=== PATIENT | female | born 1955 | race Caucasian/White ===

== ENCOUNTER 2022-10-20 14:07 | Outpatient (RCR) | payer OTHER, SELFPAY ==
[2022-10-20 15:44] LABS: Anion Gap 8 (5-15); BUN 32 mg/dL (7-18); BUN/Creat Ratio 15.2 RATIO (10-20); Chloride 110 mmol/L (98-107); Creatinine, Serum 2.11 mg/dL (0.55-1.02); EST Glomerular Filtration Rate 25 mL/min (>60); Est Glom Filt Rate - Afr Amer 30 mL/min (>60); Glucose 196 mg/dL (74-106); Potassium 3.7 mmol/L (3.5-5.1); Sodium Level 140 mmol/L (136-145)
== END 2022-10-20 18:00 | disposition home or self-care (01) ==
LOC: HHLAB 14:07
PROVIDERS: PCP Internal Medicine; Referring Provider Internal Medicine; Visit Provider Internal Medicine
DX: D64.9 Anemia, unspecified (principal)
CPT/HCPCS: 80048

== ENCOUNTER 2022-10-25 10:48 | Outpatient (RCR) | payer OTHER, SELFPAY ==
[2022-10-25 14:00] LABS: Anion Gap 8 (5-15); BUN 38 mg/dL (7-18); BUN/Creat Ratio 18.6 RATIO (10-20); Calcium,Total 9.7 mg/dL (8.5-10.1); Chloride 110 mmol/L (98-107); Creatinine, Serum 2.04 mg/dL (0.55-1.02); EST Glomerular Filtration Rate 26 mL/min (>60); Est Glom Filt Rate - Afr Amer 31 mL/min (>60); Glucose 207 mg/dL (74-106); Potassium 4.1 mmol/L (3.5-5.1); Sodium Level 138 mmol/L (136-145)
== END 2022-10-25 18:00 | disposition home or self-care (01) ==
LOC: HHLAB 10:48
PROVIDERS: PCP Internal Medicine; Visit Provider Internal Medicine
DX: N17.9 Acute kidney failure, unspecified (principal); N18.4 Chronic kidney disease, stage 4 (severe)
CPT/HCPCS: 80048

== ENCOUNTER 2024-01-17 11:00 | Outpatient (RCR) | payer OTHER, SELFPAY ==
--- NOTE | 2023-10-26 14:22 | HP.PTEVAL_ITS ---
Patient's Visit Information Visit Information Visit Information: IVIS MURRELL is a 67 year old F referred to Physical Therapy by Dr. Max Alvarenga MD with a diagnosis of LBP. Date of Evaluation: 10/26/23 Physical Therapist: Diony Landry, PT, ATC Visit Plan Frequency: 2x /Week Duration: 4-6 Weeks Plan: B LE strengthening, core stab ex's, gait training, balance and proprio, stair negotiation, nustep, and HEP Subjective Subjective: Pt reports she has had a chronic Hx of LBP. Pt reports she had surgery in March of this year to cement L2 and L5 which helped to keep the damage in her spine from worsening, but never helped with her LBP and Leg pain. Pt notes she had another surgery performed this past August to put in a LB stimulator which has actually helped to decrease her her LBP and LE pain. Pt reports she feels very fatigued and weak at this time. Pt also notes she had a lot of health issues over a year ago which resulted in a lot of falls and generalized weakness. Pt reports she has had some home health therapy over this time span, but is still very weak. Pt notes she lives with her special needs son and her . Pt reports her bedrrom is upstairs, but she sleeps down stairs secondary to the only bathroom in the house being on the main floor. Pt has 2 steps to enter her house, which she has to use 2 handrails and negotiate one step at a time. Pt reports she needs help with showering and with getting dressed at times. R LE is the weakest of her LE's secondary to having vascular surgery performed many years ago. Pt reports she is very limited with prolonged standing and walking at this time. Pt reports she has good sensation in her feet. Pt reports she is I with transfers. Pt's last fall has been several months ago in July. 5/10 at rest in B knees. Pain Legs: Pain Intensity (Out of 10): 5 Pain Intensity Range: 5 Objective Objective: TU seconds Sit to stands: Pt is able to get 3 sit to stands in a 30 second time span. Gait: Pt is able to ambulate approximately 120 feet with use of WW until needing to sit secondary to fatigue. MMT: B LE's are grossly 4-/5 throughout Balance/Special Test Scores Lower Extremity Functional Score: 16 Goals Goal 1:: Pt will be able to perform 8 sit to stand transfers in 30 seconds to aid with car transfers Goal Time Frame: 4-6 Weeks Goal 2:: Pt will perform the TUG test in under 15 seconds to aid with community mobility Goal Time Frame: 4-6 Weeks Goal 3:: Pt will be able to ambulate greater than 300 feet to aid with community mobility Goal Time Frame: 4-6 Weeks Goal 4:: I with HEP Goal Time Frame: 4-6 Weeks Rehabilitation Potential Physical Therapy Diagnosis: Pt reports LBP, LE weakness, and limitations with gait secondary to debilitation Rehabilitation Potential: Good Anticipated Interventions Patient/Client Instruction: Educate patient on: Condition and Plan of Care For the Purpose of:: To improve self management Therapeutic Exercise to Include: Strength training, Endurance training, Balance training, Gait and locomotor training and Dynamic Lumbar Stabilization For the Purpose of:: To improve muscle performance and motor function, To increase tolerance to activity/condition/position and To improve ability of physical actions for home/community/work/leisure Text: Thank you for the opportunity to evaluate your patient. For Medicare and Medicare HMO plans, please review the plan of care and approve it. It will need to be FAXED BACK to us at [phone] for Medicare purposes. For Medicare only, by signing this I certify the plan of care. Please let me know if there are questions or concerns regarding this plan of care. Physician Signature: Date:
--- NOTE | 2023-11-23 10:57 | HP.PTREVAL ---
Re-Evaluation Intro: Dr. Max Alvarenga MD, It has been my pleasure to treat IVIS MURRELL over the last 9 visits for LBP. Please see the progress note below for an update on the physical therapy plan of care! Subjective Subjective: Pt reports she has really improved a lot at this time. Objective Objective/Function: Pt is able to ambulate 170 feet with ww until needing a rest secondary to fatigue TU sec Sit to stands: 0 in 30 sec without UE. 5 reps in 30 sec with the use of UE's Pt is progressing well in all aspects at this time Plan Plan Plan: B LE strengthening, core stab ex's, gait training, balance and proprio, stair negotiation, nustep, and HEP Balance/Gait/Functional tests Balance/Special Test Scores Lower Extremity Functional Score: 15 Goals Goals Goal 1:: Pt will be able to perform 8 sit to stand transfers in 30 seconds to aid with car transfers Goal Time Frame: 4-6 Weeks Goal Progress: Progressing Goal 2:: Pt will perform the TUG test in under 15 seconds to aid with community mobility Goal Time Frame: 4-6 Weeks Goal Progress: Progressing Goal 3:: Pt will be able to ambulate greater than 300 feet to aid with community mobility Goal Time Frame: 4-6 Weeks Goal Progress: Progressing Goal 4:: I with HEP Goal Time Frame: 4-6 Weeks Goal Progress: Progressing Anticipated Interventions Anticipated Interventions Patient/Client Instruction: Educate patient on: Condition and Plan of Care For the Purpose of:: To improve self management Therapeutic Exercise to Include: Strength training, Endurance training, Balance training, Gait and locomotor training and Dynamic Lumbar Stabilization For the Purpose of:: To improve muscle performance and motor function, To increase tolerance to activity/condition/position and To improve ability of physical actions for home/community/work/leisure Re-Evaluation Ending Re-evaluation ending: Please do not hesitate to contact me at [phone] by phone or if you have questions or concerns regarding this new plan of care! Sincerely, Diony Landry, PT, ATC
--- NOTE | 2024-01-17 13:02 | HP.PTDCSUM ---
Discharge Summary D/C summary: It has been my pleasure to treat IVIS MURRELL referred by Dr. Max Alvarenga MD, with the diagnosis of LBP for a total of 18 visit(s). Discharge Date: Please see the following information for a summary of their discharge status. Subjective Subjective: I am ready for my gym routine Pain Legs: Pain Intensity (Out of 10): 7 LB: Pain Intensity (Out of 10): 5 Overall Improvement % Improvement: 60 Objective Objective/Function: Pt is now I with HEP Goals Goal 1:: Pt will be able to perform 8 sit to stand transfers in 30 seconds to aid with car transfers Goal Progress: Progressing Goal 2:: Pt will perform the TUG test in under 15 seconds to aid with community mobility Goal Progress: Progressing Goal 3:: Pt will be able to ambulate greater than 300 feet to aid with community mobility Goal Progress: Progressing Goal 4:: I with HEP Goal Progress: Goal Met Plan Plan: Educate pt on gym routine over 1-2 visits D/C Information d/c sentence: If there are questions or concerns regarding this patient's physical therapy, please feel free to call me at [phone]. Thank you for the referral of this patient. Sincerely, Diony Landry, PT, ATC Balance/Gait/Functional tests Balance/Special Test Scores Lower Extremity Functional Score: 15 Improvement % Improvement: 60
== END 2024-01-17 19:00 | disposition home or self-care (01) ==
LOC: PT 11:00
PROVIDERS: PCP Internal Medicine; Referring Provider Internal Medicine; Visit Provider Internal Medicine
DX: M54.50 Low back pain, unspecified (principal); R29.898 Other symptoms and signs involving the musculoskeletal system; G89.29 Other chronic pain
CPT/HCPCS: 97110; 97116; 97161; 97530

== ENCOUNTER 2024-05-14 11:48 | Inpatient (IN) | payer MEDICARE, SELFPAY ==
[2024-05-14] VITALS (7 sets, daily range): BP systolic 136–177; BP diastolic 57–78; PULSE 71–90; RESP 16–19; TEMP 36.3–36.8; O2SAT 93–98; BMI 27.4
--- NOTE | 2024-05-14 12:13 | ED.VIS.FALL ---
HPI <ERIC Quinn - Last Filed: 05/14/24 20:57> HPI - Fall History of Present Illness Chief Complaint: Fall Narrative Narrative: 68-year-old female had a mechanical fall in her kitchen landing on her right hip. She has poor balance at baseline and recently started physical therapy for general strengthening. She uses a walker. She was washing up at the kitchen sink so her walker was next to her and she thought she was holding onto the counter but was not and slipped backwards and fell onto her right side. She states she hit her head on the ground but not hard. No LOC. No blood thinners. She has significant right hip pain and her and a friend were able to help her up and sit her in a chair but she could not walk so was brought in by EMS. She has chronic back pain but denies increase in pain. [facility] <ERIC Quinn - Last Filed: 05/14/24 20:57> [facility] Medical History (Updated 05/14/24 @ 16:[address] Kavita Johnson, DO) Chronic back pain LOPEZ (nonalcoholic steatohepatitis) Tobacco abuse Urinary bladder incontinence Depression GERD (gastroesophageal reflux disease) Hyperlipidemia COPD (chronic obstructive pulmonary disease) Diabetes Coronary artery disease Hypertension Home Medications ?Medication ?Instructions ?Recorded ?Last Taken ?Type albuterol sulfate 90 mcg/actuation 2 inh inhalation Q4H PRN shortness 05/14/24 Unknown History breath activated powder of breath inhaler,sensor (Proair Digihaler) amlodipine 5 mg tablet 5 mg PO DAILY BLOOD PRESSURE 05/14/24 05/14/24 History ammonium lactate 12 % lotion 1 applic topical DAILY PRN dry skin 05/14/24 Unknown History aspirin 81 mg tablet,delayed 81 mg PO DAILY PAIN 05/14/24 05/14/24 History release (Adult Aspirin Regimen) coenzyme Q10 100 mg capsule (Co 100 mg PO BID SUPPLEMENT 05/14/24 05/14/24 History Q-10) colesevelam 625 mg tablet 1,875 mg PO QHS CHOLESTROL 05/14/24 05/12/24 History cyanocobalamin (vitamin B-12) 500 500 mcg PO DAILY SUPPLEMENT 05/14/24 05/14/24 History mcg tablet doxazosin 2 mg tablet 2 mg PO BID BLOOD PRESSURE 05/14/24 05/14/24 History ergocalciferol (vitamin D2) 1,250 1,250 mcg PO CURRAN SUPPLEMENT 05/14/24 Unknown History mcg (50,000 unit) capsule ferrous sulfate 325 mg (65 mg 325 mg PO DAILY SUPPLEMENT 05/14/24 05/14/24 History iron) tablet (Neetu-Time) fluticasone fur. 100 mcg-umeclid 1 ea inhalation DAILY ASTHMA 05/14/24 05/14/24 History 62.5 mcg-vilant 25 mcg inhalat.powder (Trelegy Ellipta) fluticasone propionate 50 1 spray intranasal QHS ALLERGIES 05/14/24 05/12/24 History mcg/actuation nasal spray,suspension gemfibrozil 600 mg tablet 600 mg PO BID CHOLESTROL 05/14/24 05/14/24 History isosorbide mononitrate 60 mg 60 mg PO DAILY ANGINA 05/14/24 05/14/24 History tablet,extended release 24 hr lactulose 10 gram/15 mL oral 30 ml PO TID PRN constipation 05/14/24 Unknown History solution losartan 25 mg tablet 25 mg PO DAILY BLOOD PRESSURE 05/14/24 05/14/24 History magnesium glycinate 100 mg (as 200 mg PO DAILY SUPPLEMENT 05/14/24 05/14/24 History glycinate) tablet (Mag Glycinate) multivitamin (Daily Multi-Vitamin 1 tab PO DAILY SUPPLEMENT 05/14/24 05/14/24 History tablet) pantoprazole 40 mg tablet,delayed 40 mg PO BID STOMACH ACID 05/14/24 05/14/24 History release polysaccharide iron complex 150 mg 150 mg PO BID SUPPLEMENT 05/14/24 05/14/24 History iron capsule sitagliptin phosphate 50 mg tablet 50 mg PO DAILY DIABETES 05/14/24 05/14/24 History (Januvia) spironolactone 25 mg tablet 25 mg PO DAILY WATER PILL 05/14/24 05/14/24 History torsemide 20 mg tablet 20 mg PO DAILY BLOOD PRESSURE 05/14/24 05/14/24 History triamcinolone acetonide 55 mcg 2 spray intranasal DAILY ALLERGIES 05/14/24 05/14/24 History nasal spray aerosol trospium 20 mg tablet 20 mg PO BID OVERRACTIVE BLADDER 05/14/24 05/14/24 History venlafaxine 37.5 mg tablet 37.5 mg PO BID DEPRESSION 05/14/24 05/14/24 History Allergy/AdvReac Type Severity Reaction Status Date / Time diltiazem Allergy Intermediate RASH Verified 05/14/24 12:04 grass pollen Allergy Intermediate Itching Verified 05/14/24 12:04 hydralazine Allergy Intermediate Other Verified 05/14/24 12:04 metoprolol (From Toprol XL) Allergy Intermediate Itching Verified 05/14/24 12:04 mold Allergy Intermediate Hives Verified 05/14/24 12:04 tomato Allergy Intermediate Itching Verified 05/14/24 12:04 vancomycin Allergy Intermediate Hives Verified 05/14/24 12:04 strawberry (strawberries) Allergy Itching Verified 05/14/24 12:04 NSAIDS (Non-Steroidal AdvReac Mild Other Verified 05/14/24 12:04 Anti-Inflamma pravastatin (From Pravachol) AdvReac Mild Hives Verified 05/14/24 12:04 bupropion (From Wellbutrin) AdvReac PASSES OUT Verified 05/14/24 12:04 Family History (Updated 05/14/24 @ 16:[address] Kavita Johnson DO) Other Diabetes Hypertension Surgical History S/P placement of nerve stimulator Social History (Updated 05/14/24 @ 16:[address] Kavita Johnson DO) household members: spouse housing: house Smoking Status: Former smoker alcohol intake: never substance use type: does not use ROS <ERIC Quinn - Last Filed: 05/14/24 20:57> ROS ED ROS Narrative Constitutional: Negative for fever, chills, malaise. CVS: Negative for chest pain. Respiratory: Negative for shortness of breath. GI: Negative for nausea, vomiting. Neuro: Negative for headache. Musc: Positive for right hip pain, trauma. EXAM <ERIC Quinn - Last Filed: 05/14/24 20:57> Physical Exam Narrative Exam Narrative: CONST: Patient sitting in no acute distress. EYES: Normal inspection. HEAD: Normocephalic atraumatic. NECK: Normal inspection. No midline tenderness or step-offs. RESP: No respiratory distress, CTAB. Chest wall nontender CVS: Regular rate and rhythm, no murmur, no gallop. ABD: Soft moderately distended abdomen which is chronic, no guarding or rebound. Back: Normal inspection, no midline tenderness. Palpable spinal stimulator under the skin. SKIN: Color normal, no rash, warm, dry, intact. EXTREMITIES: Full range of motion of upper extremities, no bony tenderness, 2+ radial pulses. Patient holding both legs flexed at the hips. Tender over right greater trochanter and proximal femur. No deformity or crepitus. No tenderness of the right knee lower leg or foot. Left leg nontender. 2+ DP pulses. NEURO: Alert and answering questions appropriately. PSYCH: Normal affect. Const Vital Signs: 05/14/24 11:50 05/14/24 11:55 05/14/24 13:48 Temperature 97.9 F Temperature Source Oral Pulse Rate 78 71 Respiratory Rate 18 16 Respiratory Effort Normal Blood Pressure 151/67 H 136/63 H Blood Pressure Mean 95 87 Pulse Ox 93 95 Oxygen Delivery Method Room Air Oxygen Flow Rate (L/min) 05/14/24 14:28 05/14/24 14:56 Temperature 98.2 F Temperature Source Pulse Rate 82 82 Respiratory Rate 19 H 18 Respiratory Effort Blood Pressure 152/78 H 154/72 H Blood Pressure Mean 102 99 Pulse Ox 97 95 Oxygen Delivery Method Nasal Cannula Oxygen Flow Rate (L/min) 2 <Dr. Analy Tsang DO - Last Filed: 05/14/24 14:41> Physical Exam Const Vital Signs: 05/14/24 11:50 05/14/24 11:55 05/14/24 13:48 Temperature 97.9 F Temperature Source Oral Pulse Rate 78 71 Respiratory Rate 18 16 Respiratory Effort Normal Blood Pressure 151/67 H 136/63 H Blood Pressure Mean 95 87 Pulse Ox 93 95 Oxygen Delivery Method Room Air Oxygen Flow Rate (L/min) 05/14/24 14:28 05/14/24 14:56 Temperature 98.2 F Temperature Source Pulse Rate 82 82 Respiratory Rate 19 H 18 Respiratory Effort Blood Pressure 152/78 H 154/72 H Blood Pressure Mean 102 99 Pulse Ox 97 95 Oxygen Delivery Method Nasal Cannula Oxygen Flow Rate (L/min) 2 MDM <ERIC Quinn - Last Filed: 05/14/24 20:57> MDM MDM Narrative Medical decision making narrative: History gathered from: Patient and Consults: Orthopedics, hospitalist 68-year-old female had a mechanical fall hitting her head and right hip. She is unable to ambulate secondary to pain was brought in by EMS. She is awake and alert. GCS 15. Stable vital signs. She has no external signs of injury to her head. She is holding both legs flexed and they appear symmetric but she is tender over the right greater trochanter and proximal femur. Neurovascularly intact. CT brain is negative. Right hip x-ray shows a patient transcervical fracture of the proximal femur. Patient was given IV morphine and Zofran. Labs and preop imaging obtained. I will discuss the case with orthopedics and hospitalist. I have personally performed a face to face assessment of the patient and have reviewed the ESSIE Note. I performed a substantive portion of the visit including all aspects of the following. My dobbs findings include: History is [patient presents to the emergency department after sustaining a fall today. She states that she was standing in the kitchen trying to wash her face when she lost her balance and fell injuring her right hip. She did hit her head but no loss of consciousness. She denies significant neck pain. Presents via EMS from home. She takes a baby aspirin daily. No other anticoagulation. Denies recent illness. She also has history of peripheral artery disease] Exam is [HEENT-PERRLA, EOMI. Cranial nerves II through XII grossly intact. TMs clear. Mucous membranes moist. No adenopathy. Cardiovascular-regular rate and rhythm without murmur or ectopy Lungs-clear to auscultation, chest wall stable without crepitus or subcu emphysema Abdomen-normoactive bowel sounds, soft, nontender, no rebound or rigidity, no peritoneal signs. Extremities-intact ?4, normal range of motion, normal pulses, atraumatic] Medical Decison Making [patient had x-rays of the right hip and pelvis that showed a right femoral neck fracture.] CT scan of the brain without contrast on my interpretation shows no bleeding or hemorrhage or skull fracture. Patient will report from radiology pending. CBC with differential showed a white count 5.8 with hemoglobin 12.7 and platelet count of 137. Will obtain chest x-ray as well as an EKG. Case will be discussed with hospitalist as well as with orthopedics and patient will be admitted to the hospital Other additions or changes: [None] Lab Data Labs: Laboratory Results - last 24 hr 05/14/24 05/14/24 12:02 13:10 WBC 5.8 RBC 4.17 L Hgb 12.7 Hct 38.0 MCV 91.1 MCH 30.5 MCHC 33.4 RDW Std Deviation 44.7 H RDW Coeff of Juanito 13.5 Plt Count 137 L MPV 12.7 H Immature Gran % (Auto) 0.700 Neut % (Auto) 82.3 H Lymph % (Auto) 7.7 L Mccormick % (Auto) 6.4 Eos % (Auto) 2.4 Baso % (Auto) 0.5 Absolute Neuts (auto) 4.8 Absolute Lymphs (auto) 0.45 L Nucleated RBC % 0 PT 13.5 INR 1.0 Sodium 140 Potassium 4.3 Chloride 105 Carbon Dioxide 18.3 L Anion Gap 16 H BUN 37 H Creatinine 1.52 H Estim Creat Clear Calc 37.94 L Est GFR (MDRD) Non-Af 37 L BUN/Creatinine Ratio 24.5 H Glucose 206 H Calcium 9.9 Blood Type AB POSITIVE Antibody Screen NEGATIVE Radiography Diagnostic Testing: Clinical Impression(s) from Imaging Studies Femur X-Ray 05/14/24 12:30 IMPRESSION: Nondisplaced impacted subcapital fracture of the proximal right femur. Reading Location: [facility] Pelvis X-Ray 05/14/24 12:30 IMPRESSION: Nondisplaced subcapital fracture proximal right femur. Reading Location: [facility]--[address] 05/14/24 13:00 IMPRESSION: Cerebral atrophy. No acute intracranial abnormality is seen. Reading Location: [facility] Chest X-Ray 05/14/24 13:15 IMPRESSION: Cardiomegaly with mild congestion. Reading Location: [facility] <Dr. Analy Tsang, DO - Last Filed: 05/14/24 14:41> MDM MDM Narrative Medical decision making narrative: History gathered from: Patient and 68-year-old female had a mechanical fall hitting her head and right hip. She is unable to ambulate secondary to pain was brought in by EMS. She is awake and alert. GCS 15. Stable vital signs. She has no external signs of injury to her head. There is no tenderness of the cervical spine or thoracic or lumbar spine. Normal cardiopulmonary exam. Abdomen soft and nontender. There is chronic abdominal distention from Lopez cirrhosis. She is holding both legs flexed and they appear symmetric but she is tender over the right greater trochanter and proximal femur. Neurovascularly intact. I have personally performed a face to face assessment of the patient and have reviewed the ESSIE Note. I performed a substantive portion of the visit including all aspects of the following. My dobbs findings include: History is [patient presents to the emergency department after sustaining a fall today. She states that she was standing in the kitchen trying to wash her face when she lost her balance and fell injuring her right hip. She did hit her head but no loss of consciousness. She denies significant neck pain. Presents via EMS from home. She takes a baby aspirin daily. No other anticoagulation. Denies recent illness. She also has history of peripheral artery disease] Exam is [HEENT-PERRLA, EOMI. Cranial nerves II through XII grossly intact. TMs clear. Mucous membranes moist. No adenopathy. Cardiovascular-regular rate and rhythm without murmur or ectopy Lungs-clear to auscultation, chest wall stable without crepitus or subcu emphysema Abdomen-normoactive bowel sounds, soft, nontender, no rebound or rigidity, no peritoneal signs. Extremities-intact ?4, normal range of motion, normal pulses, atraumatic] Medical Decison Making [patient had x-rays of the right hip and pelvis that showed a right femoral neck fracture.] CT scan of the brain without contrast on my interpretation shows no bleeding or hemorrhage or skull fracture. Patient will report from radiology pending. CBC with differential showed a white count 5.8 with hemoglobin 12.7 and platelet count of 137. Will obtain chest x-ray as well as an EKG. Case will be discussed with hospitalist as well as with orthopedics and patient will be admitted to the hospital Other additions or changes: [None] Lab Data Attestation: I reviewed the patient's lab results. Labs: Laboratory Results - last 24 hr 05/14/24 05/14/24 12:02 13:10 WBC 5.8 RBC 4.17 L Hgb 12.7 Hct 38.0 MCV 91.1 MCH 30.5 MCHC 33.4 RDW Std Deviation 44.7 H RDW Coeff of Juanito 13.5 Plt Count 137 L MPV 12.7 H Immature Gran % (Auto) 0.700 Neut % (Auto) 82.3 H Lymph % (Auto) 7.7 L Mccormick % (Auto) 6.4 Eos % (Auto) 2.4 Baso % (Auto) 0.5 Absolute Neuts (auto) 4.8 Absolute Lymphs (auto) 0.45 L Nucleated RBC % 0 PT 13.5 INR 1.0 Sodium 140 Potassium 4.3 Chloride 105 Carbon Dioxide 18.3 L Anion Gap 16 H BUN 37 H Creatinine 1.52 H Estim Creat Clear Calc 37.94 L Est GFR (MDRD) Non-Af 37 L BUN/Creatinine Ratio 24.5 H Glucose 206 H Calcium 9.9 Blood Type AB POSITIVE Antibody Screen NEGATIVE Radiography Diagnostic Testing: Clinical Impression(s) from Imaging Studies Femur X-Ray 05/14/24 12:30 IMPRESSION: Nondisplaced impacted subcapital fracture of the proximal right femur. Reading Location: [facility]1 Pelvis X-Ray 05/14/24 12:30 IMPRESSION: Nondisplaced subcapital fracture proximal right femur. Reading Location: [facility]-[address] 05/14/24 13:00 IMPRESSION: Cerebral atrophy. No acute intracranial abnormality is seen. Reading Location: [facility] Chest X-Ray 05/14/24 13:15 IMPRESSION: Cardiomegaly with mild congestion. Reading Location: [facility] 1 view chest x-ray obtained interpreted by myself as increased chronic interstitial changes bilaterally. No evidence of infiltrate or pneumothorax. 2 view x-rays of the right femur obtained interpreted by myself as right subcapital hip fracture minimally displaced. Radiology in agreement. 1 view pelvis x-ray obtained interpreted by myself as right subcapital hip fracture. No other fractures noted. EKG Initial EKG: Attestation: I personally reviewed and interpreted this EKG as follows: Comments: Sinus rhythm with ventricular rate of 71 bpm with old septal infarct Discharge Plan Dx/Rx/DC Orders Clinical Impression: Fall, Closed right hip fracture, Hypertension Disposition Disposition: Acute Care Hospital [facility] Discharge Date/Time: 05/14/24 17:37
[2024-05-14] MEDS: Ondansetron 4 MG/2 ML Vial IV ×2 (12:14→13:36)
[2024-05-14] MEDS: Morphine 4 MG/ML Syringe IV ×3 (12:15→17:14)
--- NOTE | 2024-05-14 12:30 | RAD_ITS ---
PROCEDURE: FEMUR MIN 2 VIEWS REASON FOR EXAM: Pain following a fall. TECHNIQUE: Four views of the left femur were obtained. COMPARISON: None. FINDINGS: RIGHT FEMUR: Nondisplaced right subcapital fracture. Vascular stent in the common femoral artery and superficial femoral artery. RAD/Femur Min 2 Views IMPRESSION: Nondisplaced impacted subcapital fracture of the proximal right femur. Reading Location: [facility]--1
--- NOTE | 2024-05-14 12:30 | RAD_ITS ---
PROCEDURE: PELVIS 1 OR 2 VIEWS REASON FOR EXAM: Right hip pain following a fall. TECHNIQUE: Two views were obtained. COMPARISON: None FINDINGS: Nondisplaced right subcapital fracture of the proximal right femur. Degenerative changes of the lower lumbar spine with prior vertebroplasty of the L3 and L5 vertebrae. Stent is seen in the distal portion of the left external iliac and common femoral arteries. RAD/Pelvis 1 or 2 Views IMPRESSION: Nondisplaced subcapital fracture proximal right femur. [facility]
--- NOTE | 2024-05-14 13:00 | CT_ITS ---
EXAM: BRAIN/HEAD WITHOUT CONTRAST CLINICAL HISTORY: Head injury due to a fall. COMPARISON: None TECHNIQUE: Multiple axial tomographic images were obtained without intravenous contrast administration. Coronal and sagittal reconstruction was obtained as well. FINDINGS: Mild degree of cerebral atrophy. Mild degree of decreased attenuation deep in the white matter of both cerebral hemispheres in keeping with chronic small-vessel disease. Old tiny lacune of the posterior right thalamus. CT/Brain/Head without Contrast IMPRESSION: Cerebral atrophy. No acute intracranial abnormality is seen. Reading Location: [facility]
[2024-05-14 13:05] LABS: Absolute Lymphocyte Count 0.45 X10^3/uL (0.83-4.51); Absolute Neutrophil Count 4.8 X10^3/uL (2.0-7.7); Basophil# 0.03 X10^3/uL; Basophil% 0.5 % (0-1); Eosinophil# 0.14 X10^3/uL; Eosinophils% 2.4 % (0-5); Hemoglobin 12.7 g/dL (12.0-15.0); Lymphocyte # 0.45 X10^3/ul (0.83-4.51); Lymphocyte % 7.7 % (19-41); Mean Corp Hgb Conc 33.4 g/dL (32-36); Mean Corpuscular Hgb 30.5 pg (27.0-32.0); Mean Corpuscular Volume 91.1 fL (81-99); Mean Platelet Vol. 12.7 fl (6.2-12.0); Monocyte# 0.37 X10^3/uL; Monocyte% 6.4 % (0-10); NRBC Flagged by Analyzer 0 % (0-5); Neutrophil # 4.79 X10^3/uL (2.7-7.7); Neutrophil % 82.3 % (47-70); POSITIVE DIFFERENTIAL YES; Platelet Count 137 K/mm3 (150-450); RBC Distribution Width CV 13.5 % (11.6-14.6); RBC Distribution Width SD 44.7 fl (35.1-43.9); Red Blood Count 4.17 M/mm3 (4.2-5.4); White Blood Count 5.8 K/mm3 (4.4-11.0)
--- NOTE | 2024-05-14 13:12 | EKG12_ITS ---
Test Reason : PRE-OP Blood Pressure : */* mmHG Vent. Rate : 71 BPM Atrial Rate : 71 BPM P-R Int : 308 ms QRS Dur : 84 ms QT Int : 226 ms P-R-T Axes : 93 39 44 degrees QTcB Int : 245 ms Sinus rhythm with 1st degree A-V block Possible Left atrial enlargement Septal infarct , age undetermined Abnormal ECG Confirmed by Miky Rainey ([id number]), web content editor VICTOR M CARRILLO ([id number]) on 05/15/2024 10:56:54 AM Referred By: Confirmed By: Miky Rainey
--- NOTE | 2024-05-14 13:15 | RAD_ITS ---
EXAM: XR Chest, 1 View CLINICAL INDICATION: TECHNIQUE: Frontal view of the chest. COMPARISON: No relevant prior studies available. FINDINGS: LUNGS AND PLEURAL SPACES: See below. HEART: Cardiomegaly with mild congestion. MEDIASTINUM: Unremarkable. Normal mediastinal contour. BONES/JOINTS: Unremarkable. No acute fracture. RAD/Chest 1 View (Portable) IMPRESSION: Cardiomegaly with mild congestion. Reading Location[facility]
[2024-05-14 13:21] LABS: Prothrombin Time (Protime)PT. 13.5 SECONDS (11.7-14.9)
[2024-05-14 13:31] LABS: Anion Gap 16 (5-15); BUN 37 mg/dL (4-19); BUN/Creat Ratio 24.5 RATIO (10-20); Calcium,Total 9.9 mg/dL (7.6-11.0); Carbon Dioxide 18.3 mmol/L (21.0-32.0); Chloride 105 mmol/L (98-108); Creatinine, Serum 1.52 mg/dL (0.70-1.20); EST Glomerular Filtration Rate 37 (>60); Estimated Creatinine Clearance 37.94 ml/min (50-250); Glucose 206 mg/dL (70-99); Potassium 4.3 mmol/L (3.3-5.1); Sodium Level 140 mmol/L (133-145)
[2024-05-14] MEDS: HYDROmorphone 1 MG/ML Syringe IV (14:51)
--- NOTE | 2024-05-14 15:04 | HP.PCM.HOS_ITS ---
HPI - General General Date of Admission: 05/14/24 Date of Service: 05/14/24 Chief Complaint: Right hip pain after mechanical fall HPI Narrative IVIS MURRELL, is a 68 F who presented to the emergency department at [facility] on 05/14/2024 secondary to right hip pain that started after mechanical fall. Patient states she was standing in the kitchen. reports she was alone. She lost her balance and fell backwards and landed on her right hip. She had immediate pain was not able to ambulate. She was brought to the emergency department and found to have a right nondisplaced impacted subcapital fracture of the right proximal femur. Patient did report she was having some lightheadedness at the time. She denies that it was medardo dizziness and just stated she felt a little bit woozy. This has since resolved. She was in her normal state of health prior to this episode. Vital signs on presentation showed temperature of 97.9, heart rate 78, respiratory rate 18, blood pressure is 151/67 and pulse ox is 93% on room air. CBC shows chronic thrombocytopenia but was otherwise unremarkable. Platelet count is 137,000 and stable. Coags were normal. Chemistry panel shows normal electrolytes and elevated anion gap and low serum bicarb however they suspect these are related the lab inaccuracies and this will be repeated in the morning. She has a chronically elevated BUN and creatinine with an CKD appears to be stable with a BUN of 37 and a serum creatinine 1.52. Glucose was elevated at 206 and she has a known history of diabetes. EKG was sinus rhythm with poor R wave progression but no ST-T wave changes consistent with acute ischemia. Chest x-ray showed cardiomegaly and some mild congestion. For this she was given Lasix IV push x 1 dose in emergency department. Hip and pelvic x-rays are consistent with a right impacted intertrochanteric fracture. The case was discussed with Dr. Velasco in the emergency department and he indicated he would see the patient to take her to the OR after admission. [facility] Medical History (Updated 05/14/24 @ 16:[address] Kavita Johnson, DO) Chronic back pain MCCOY (nonalcoholic steatohepatitis) Tobacco abuse Urinary bladder incontinence Depression GERD (gastroesophageal reflux disease) Hyperlipidemia COPD (chronic obstructive pulmonary disease) Diabetes Coronary artery disease Hypertension Home Medications ?Medication ?Instructions ?Recorded ?Last Taken ?Type albuterol sulfate 90 mcg/actuation 2 inh inhalation Q4 H PRN shortness 05/14/24 Unknown History breath activated powder of breath inhaler,sensor (Proair Digihaler) amlodipine 5 mg tablet 5 mg PO DAILY BLOOD PRESSURE 05/14/24 05/14/24 History ammonium lactate 12 % lotion 1 applic topical DAILY SC N dry skin 05/14/24 Unknown History aspirin 81 mg tablet,delayed 81 mg PO DAILY PAIN 05/1405/14/24 History release (Adult Aspirin Regimen) coenzyme Q10 100 mg capsule (Co 100 mg PO BID SUPPLEME NT 05/14/24 05/14/24 History Q-10) colesevelam 625 mg tablet 1,875 mg PO QHS CHOLESTROL 0 05/14/24 05/12/24 History cyanocobalamin (vitamin B-12) 500 500 mcg PO DAILY SUP PLEMENT 05/14/24 05/14/24 History mcg tablet doxazosin 2 mg tablet 2 mg PO BID BLOOD PRESSURE 0 05/14/24 05/14/24 History ergocalciferol (vitamin D2) 1,250 1,250 mcg PO CURRAN SUPP LEMENT 05/14/24 Unknown History mcg (50,000 unit) capsule ferrous sulfate 325 mg (65 mg 325 mg PO DAILY SUPPLEME NT 05/14/24 05/14/24 History iron) tablet (Neetu-Time) fluticasone fur. 100 mcg-umeclid 1 ea inhalation DAILY ASTHMA 05/14/24 05/14/24 History 62.5 mcg-vilant 25 mcg inhalat.powder (Trelegy Ellipta) fluticasone propionate 50 1 spray intranasal QHS ALLER GIES 05/14/24 05/12/24 History mcg/actuation nasal spray,suspension gemfibrozil 600 mg tablet 600 mg PO BID CHOLESTROL 12/2905/14/24 History isosorbide mononitrate 60 mg 60 mg PO DAILY ANGINA 12/2905/14/24 History tablet,extended release 24 hr lactulose 10 gram/15 mL oral 30 ml PO TID PRN constipa tion 05/14/24 Unknown History solution losartan 25 mg tablet 25 mg PO DAILY BLOOD PRESSUR E 05/14/24 05/14/24 History magnesium glycinate 100 mg (as 200 mg PO DAILY SUPPLEM ENT 05/14/24 05/14/24 History glycinate) tablet (Mag Glycinate) multivitamin (Daily Multi-Vitamin 1 tab PO DAILY SUPPL EMENT 05/14/24 05/14/24 History tablet) pantoprazole 40 mg tablet,delayed 40 mg PO BID STOMACH ACID 05/14/24 05/14/24 History release polysaccharide iron complex 150 mg 150 mg PO BID SUPPL EMENT 05/14/24 05/14/24 History iron capsule sitagliptin phosphate 50 mg tablet 50 mg PO DAILY DIAB ETES 05/14/24 05/14/24 History (Januvia) spironolactone 25 mg tablet 25 mg PO DAILY WATER PILL 05/14/24 05/14/24 History torsemide 20 mg tablet 20 mg PO DAILY BLOOD PRESSUR E 05/14/24 05/14/24 History triamcinolone acetonide 55 mcg 2 spray intranasal BAMBI Y ALLERGIES 05/14/24 05/14/24 History nasal spray aerosol trospium 20 mg tablet 20 mg PO BID OVERRACTIVE DAVEY DDER 05/14/24 05/14/24 History venlafaxine 37.5 mg tablet 37.5 mg PO BID DEPRESSION 0 05/14/24 05/14/24 History Allergy/AdvReac Type Severity Reaction Status Date / Time diltiazem Allergy Intermediate RASH Verified 05/14/24 12:04 grass pollen Allergy Intermediate Itching Verified 05/14/24 12:04 hydralazine Allergy Intermediate Other Verified 05/14/24 12:04 metoprolol (From Toprol XL) Allergy Intermediate Itching Verified 05/14/24 12:04 mold Allergy Intermediate Hives Verified 05/14/24 12:04 tomato Allergy Intermediate Itching Verified 05/14/24 12:04 vancomycin Allergy Intermediate Hives Verified 05/14/24 12:04 strawberry (strawberries) Allergy Itching Verified 05/14/24 12:04 NSAIDS (Non-Steroidal AdvReac Mild Other Verified 05/14/24 12:04 Anti-Inflamma pravastatin (From Pravachol) AdvReac Mild Hives Verified 05/14/24 12:04 bupropion (From Wellbutrin) AdvReac PASSES OUT Verified 05/14/24 12:04 Family History (Updated 05/14/24 @ 16:[address] Kavita Johnson DO) Other Diabetes Hypertension Surgical History S/P placement of nerve stimulator Social History (Updated 05/14/24 @ 16:[address] Kavita Johnson DO) household members: spouse housing: house Smoking Status: Former smoker alcohol intake: never substance use type: does not use ROS Constitutional Constitutional: Denies anorexia, change in weight, chills, fatigue, fever(s), malaise, night sweats, weakness or other Eyes Eyes: Denies blurry vision, change in eye color, change in vision, discharge from eye(s), double vision, erythema, eye pain, loss of vision or other ENT HEENT: Denies abnormal hearing, dysphagia, ear pain, epistaxis, headache(s), hearing loss, nasal congestion, nasal discharge, post nasal drip, sinus pressure, sore throat or other Cardiovascular Cardiovascular: Denies chest pain, claudication, dyspnea on exertion, edema, lightheadedness, orthopnea, palpitations, paroxysmal nocturnal dyspnea, rapid heart rate, syncope or other Respiratory/Chest Respiratory/Chest: Denies cough, dyspnea, excessive phlegm production, hemoptysis, productive cough, shortness of breath at rest, shortness of breath with exertion, wheezing or other Gastrointestinal Gastrointestinal: Denies abdominal pain, coffee ground emesis, constipation, diarrhea, dyspepsia, hematemesis, hematochezia, loose stools, melena, nausea, vomiting or other Genitourinary Genitourinary: Reports urinary incontinence; Denies burning urination, difficulty urinating, dysuria, hematuria, nocturia, urinary frequency, urinary hesitancy, urinary urgency or other Musculoskeletal Musculoskeletal: Reports joint pain; Denies arthralgias, back pain, joint stiffness, joint swelling, myalgias, neck pain or other Neurologic Neurologic: Reports abnormal gait; Denies abnormal speech, confusion, disequilibrium, dizziness, focal weakness, headache(s), numbness, paresthesias, seizure-like activity, seizures, syncope, tingling, tremor(s) or other Psychiatric Psychiatric: Reports anxiety and depression; Denies homicidal ideation, suicidal ideation or other Endocrine Endocrinology: Denies change in body appearance, cold intolerance, excessive sweating, heat intolerance, polydipsia, polyuria or other Hematologic/Lymphatic Hematologic/Lymphatic: Reports easy bruising; Denies anemia, easy bleeding, lymphadenopathy or other Allergic/Immunologic Allergic/Immunologic: Denies rhinitis, hives, eczemia, asthma or other Vital Signs Vital Signs Vital Signs: 05/14/24 11:50 05/14/24 11:55 05/14/24 13:48 Temperature 97.9 F Temperature Source Oral Pulse Rate 78 71 Respiratory Rate 18 16 Respiratory Effort Normal Blood Pressure 151/67 H 136/63 H Blood Pressure Mean 95 87 Pulse Ox 93 95 Oxygen Delivery Method Room Air Oxygen Flow Rate (L/min) 05/14/24 14:28 05/14/24 14:56 Temperature 98.2 F Temperature Source Pulse Rate 82 82 Respiratory Rate 19 H 18 Respiratory Effort Blood Pressure 152/78 H 154/72 H Blood Pressure Mean 102 99 Pulse Ox 97 95 Oxygen Delivery Method Nasal Cannula Oxygen Flow Rate (L/min) 2 Weight Weight: 79.6 kg Body Mass Index (BMI) 27.4 Physical Exam Const alert, oriented x3 and well nourished; Negative for no apparent distress, average body habitus or healthy appearing Constitutional Narrative: Uncomfortable appearing, overweight, upper middle-aged, white female, appears older than stated age, lying flat in bed turned slightly to the left, and nursing staff at bedside General Appearance: cooperative HEENT normocephalic, head/scalp atraumatic and hearing grossly normal bilaterally HEENT Narrative: Mallampati 2, no thrush noted, mucous membranes are dry Eyes EOMs intact bilaterally and conjunctivae normal Eyes Narrative: No scleral icterus Neck supple Neck Narrative: Trachea midline, no thyroid enlargement Resp normal respiratory effort, no retractions, no use of accessory muscles and No clear to auscultation bilaterally Resp Narrative: Few crackles at bases bilaterally and diffusely diminished but otherwise clear Auscultation: crackles; Negative for rhonchi or wheezes Cardio regular rate, regular rhythm, S1 normal heart sound, S2 normal heart sound, no rub, no gallops and no clicks Cardio Narrative: 3-6 systolic murmur loudest at the right upper sternal border GI normal to inspection, nondistended, normoactive bowel sounds, soft to palpation and non-tender Extremity no clubbing, cyanosis or edema Extremity Narrative: Right lower extremity is shortened and internally rotated, patient is unable to move proximal right lower extremity currently due to pain, able to wiggle toes without difficulty Neuro oriented x3 and no focal motor deficits Speech: speech normal Psych Psych Narrative: Appears uncomfortable but pleasant interacts appropriately Results Lab / Micro Data 05/14/24 12:02 05/14/24 12:02 Labs: Laboratory Results - last 24 hr 05/14/24 12:02: WBC 5.8, RBC 4.17 L, Hgb 12.7, Hct 38.0, MCV 91.1, MCH 30.5, MCHC 33.4, RDW Std Deviation 44.7 H, RDW Coeff of Juanito 13.5, Plt Count 137 L, MPV 12.7 H, Immature Gran % (Auto) 0.700, Neut % (Auto) 82.3 H, Lymph % (Auto) 7.7 L , [place] % (Auto) 6.4, Eos % (Auto) 2.4, Baso % (Auto) 0.5, Absolute Neuts (auto) 4.8, Absolute Lymphs (auto) 0.45 L, Nucleated RBC % 0, PT 13.5, INR 1.0, Sodium 140, Potassium 4.3, Chloride 105, Carbon Dioxide 18.3 L, Anion Gap 16 H, BUN 37 H, Creatinine 1.52 H, Estim Creat Clear Calc 37.94 L, Est GFR (MDRD) Non-Af 37 L , BUN/Creatinine Ratio 24.5 H, Glucose 206 H, Calcium 9.9 05/14/24 13:10: Blood Type AB POSITIVE, Antibody Screen NEGATIVE Imaging Radiology Impression Brain CT 05/14/24 13:00 IMPRESSION: Cerebral atrophy. No acute intracranial abnormality is seen. Reading Location: [facility] Chest X-Ray 05/14/24 13:15 IMPRESSION: Cardiomegaly with mild congestion. Reading Location: [facility] Assessment & Plan Assessment/Plan (1) Closed right hip fracture: (2) Fall: (3) Lightheadedness: PLAN: Plan Right intertrochanteric fracture secondary to mechanical fall -patient was in kitchen step back and lost balance -N.p.o. after midnight -Schedule Tylenol 1000 mg every 8 hours -As needed oxycodone -As needed Dilaudid for breakthrough -As needed tizanidine for muscle spasm -Place Ignacio catheter -Preoperative EKG was performed and unremarkable -Preoperative chest x-ray shows some mild volume overload likely related to her history of liver disease and will give Lasix IV push x 1 dose to optimize her preoperatively -PT/OT postoperatively -Case management/social work consultation for assistance with discharge planning -Orthopedic surgery consultation is pending--> Dr. Velasco was called by the emergency department Lightheadedness -Seems to be related to possibly the fall -Resolved currently but will need to monitor postoperatively -PT/OT consultation postoperatively -Patient not hypotensive on presentation so we will hold home trospium as this may be precipitating this COPD -Utilize as needed oxygen however patient is not oxygen dependent at baseline -As needed albuterol -Will schedule nebulizers in the perioperative period next-continue home inhalers -I-S and Acapella Essential hypertension/hyperlipidemia -Continue home amlodipine -Continue home colesevelam -Continue home doxazosin -Continue home gemfibrozil -Continue home isosorbide mononitrate -Continue home losartan -Continue home Aldactone -Continue home torsemide Overactive bladder/urinary continence -Will hold home trospium with lightheadedness GERD -Continue on PPI CKD stage IIIb -Serum creatinine appears to be close to baseline -Continue to monitor -Avoid nephrotoxins as able -No NSAIDs MCCOY -As needed lactulose -Control risk factors DM-2 -Check hemoglobin A1c -Hold home Januvia -SSI -Accu-Cheks as ordered -Cardiac/carb controlled diet Seasonal allergies -Continue nasal. Vitamin D deficiency -Continue home ergocalciferol Chronic low back pain -Previous nerve stimulator -Therapy as above -As needed pain medication as above DVT prophylaxis -start subcu Lovenox tomorrow evening CODE STATUS -Full code as verified on admission Charges/Coding Visit Charges Inpatient E&M: 76713 Init Hosp L2
--- NOTE | 2024-05-14 16:12 | CONS.ORTHO ---
HPI Consult Data Date of Consult: 05/14/24 HPI Narrative HPI Narrative: IVIS MURRELL, is a 68 F who presents R hip fracture. fell at home. has been having LE weakness for a year and vascular problems. was in a wheelchair recently but not trying more so a walker. here with her Demetris. no SOB or CP with the fall. [facility] Medical History (Updated 05/14/24 @ 16:[address] Kavita Johnson, DO) Chronic back pain MCCOY (nonalcoholic steatohepatitis) Tobacco abuse Urinary bladder incontinence Depression GERD (gastroesophageal reflux disease) Hyperlipidemia COPD (chronic obstructive pulmonary disease) Diabetes Coronary artery disease Hypertension Home Medications ?Medication ?Instructions ?Recorded ?Last Taken ?Type albuterol sulfate 90 mcg/actuation 2 inh inhalation Q4H PRN shortness 05/14/24 Unknown History breath activated powder of breath inhaler,sensor (Proair Digihaler) amlodipine 5 mg tablet 5 mg PO DAILY BLOOD PRESSURE 05/14/24 05/14/24 History ammonium lactate 12 % lotion 1 applic topical DAILY PRN dry skin 05/14/24 Unknown History aspirin 81 mg tablet,delayed 81 mg PO DAILY PAIN 05/14/24 05/14/24 History release (Adult Aspirin Regimen) coenzyme Q10 100 mg capsule (Co 100 mg PO BID SUPPLEMENT 05/14/24 05/14/24 History Q-10) colesevelam 625 mg tablet 1,875 mg PO QHS CHOLESTROL 05/14/24 05/12/24 History cyanocobalamin (vitamin B-12) 500 500 mcg PO DAILY SUPPLEMENT 05/14/24 05/14/24 History mcg tablet doxazosin 2 mg tablet 2 mg PO BID BLOOD PRESSURE 05/14/24 05/14/24 History ergocalciferol (vitamin D2) 1,250 1,250 mcg PO CURRAN SUPPLEMENT 05/14/24 Unknown History mcg (50,000 unit) capsule ferrous sulfate 325 mg (65 mg 325 mg PO DAILY SUPPLEMENT 05/14/24 05/14/24 History iron) tablet (Neetu-Time) fluticasone fur. 100 mcg-umeclid 1 ea inhalation DAILY ASTHMA 05/14/24 05/14/24 History 62.5 mcg-vilant 25 mcg inhalat.powder (Trelegy Ellipta) fluticasone propionate 50 1 spray intranasal QHS ALLERGIES 05/14/24 05/12/24 History mcg/actuation nasal spray,suspension gemfibrozil 600 mg tablet 600 mg PO BID CHOLESTROL 05/14/24 05/14/24 History isosorbide mononitrate 60 mg 60 mg PO DAILY ANGINA 05/14/24 05/14/24 History tablet,extended release 24 hr lactulose 10 gram/15 mL oral 30 ml PO TID PRN constipation 05/14/24 Unknown History solution losartan 25 mg tablet 25 mg PO DAILY BLOOD PRESSURE 05/14/24 05/14/24 History magnesium glycinate 100 mg (as 200 mg PO DAILY SUPPLEMENT 05/14/24 05/14/24 History glycinate) tablet (Mag Glycinate) multivitamin (Daily Multi-Vitamin 1 tab PO DAILY SUPPLEMENT 05/14/24 05/14/24 History tablet) pantoprazole 40 mg tablet,delayed 40 mg PO BID STOMACH ACID 05/14/24 05/14/24 History release polysaccharide iron complex 150 mg 150 mg PO BID SUPPLEMENT 05/14/24 05/14/24 History iron capsule sitagliptin phosphate 50 mg tablet 50 mg PO DAILY DIABETES 05/14/24 05/14/24 History (Januvia) spironolactone 25 mg tablet 25 mg PO DAILY WATER PILL 05/14/24 05/14/24 History torsemide 20 mg tablet 20 mg PO DAILY BLOOD PRESSURE 05/14/24 05/14/24 History triamcinolone acetonide 55 mcg 2 spray intranasal DAILY ALLERGIES 05/14/24 05/14/24 History nasal spray aerosol trospium 20 mg tablet 20 mg PO BID OVERRACTIVE BLADDER 05/14/24 05/14/24 History venlafaxine 37.5 mg tablet 37.5 mg PO BID DEPRESSION 05/14/24 05/14/24 History Allergy/AdvReac Type Severity Reaction Status Date / Time diltiazem Allergy Intermediate RASH Verified 05/14/24 12:04 grass pollen Allergy Intermediate Itching Verified 05/14/24 12:04 hydralazine Allergy Intermediate Other Verified 05/14/24 12:04 metoprolol (From Toprol XL) Allergy Intermediate Itching Verified 05/14/24 12:04 mold Allergy Intermediate Hives Verified 05/14/24 12:04 tomato Allergy Intermediate Itching Verified 05/14/24 12:04 vancomycin Allergy Intermediate Hives Verified 05/14/24 12:04 strawberry (strawberries) Allergy Itching Verified 05/14/24 12:04 NSAIDS (Non-Steroidal AdvReac Mild Other Verified 05/14/24 12:04 Anti-Inflamma pravastatin (From Pravachol) AdvReac Mild Hives Verified 05/14/24 12:04 bupropion (From Wellbutrin) AdvReac PASSES OUT Verified 05/14/24 12:04 Family History (Updated 05/14/24 @ 16:[address] Kavita Johnson DO) Other Diabetes Hypertension Surgical History S/P placement of nerve stimulator Social History (Updated 05/14/24 @ 16:[address] Kavita Johnson DO) household members: spouse housing: house Smoking Status: Former smoker alcohol intake: never substance use type: does not use Vital Signs Vital Signs Vital Signs: 05/14/24 11:50 05/14/24 11:55 05/14/24 13:48 Temperature 97.9 F Temperature Source Oral Pulse Rate 78 71 Respiratory Rate 18 16 Respiratory Effort Normal Blood Pressure 151/67 H 136/63 H Blood Pressure Mean 95 87 Pulse Ox 93 95 Oxygen Delivery Method Room Air Oxygen Flow Rate (L/min) 05/14/24 14:28 05/14/24 14:56 Temperature 98.2 F Temperature Source Pulse Rate 82 82 Respiratory Rate 19 H 18 Respiratory Effort Blood Pressure 152/78 H 154/72 H Blood Pressure Mean 102 99 Pulse Ox 97 95 Oxygen Delivery Method Nasal Cannula Oxygen Flow Rate (L/min) 2 Weight Weight: 175 lb 7.807 oz Body Mass Index (BMI) 27.4 Physical Exam Const alert, oriented x3, no apparent distress and well nourished General Appearance: cooperative Extremity normal capillary refill Extremity Narrative: closed, short slight ER, thigh soft, nvi. wiggles toes, normal sensation, foot warm well perfused. no knee or ankle pain. Lab / Micro Data 05/14/24 12:02 05/14/24 12:02 Labs: Laboratory Results - last 24 hr 05/14/24 12:02: WBC 5.8, RBC 4.17 L, Hgb 12.7, Hct 38.0, MCV 91.1, MCH 30.5, MCHC 33.4, RDW Std Deviation 44.7 H, RDW Coeff of [place] 13.5, Plt Count 137 L, MPV 12.7 H, Immature Gran % (Auto) 0.700, Neut % (Auto) 82.3 H, Lymph % (Auto) 7.7 L, [place] % (Auto) 6.4, Eos % (Auto) 2.4, Baso % (Auto) 0.5, Absolute Neuts (auto) 4.8, Absolute Lymphs (auto) 0.45 L, Nucleated RBC % 0, PT 13.5, INR 1.0, Sodium 140, Potassium 4.3, Chloride 105, Carbon Dioxide 18.3 L, Anion Gap 16 H, BUN 37 H, Creatinine 1.52 H, Estim Creat Clear Calc 37.94 L, Est GFR (MDRD) Non-Af 37 L, BUN/Creatinine Ratio 24.5 H, Glucose 206 H, Calcium 9.9 05/14/24 13:10: Blood Type AB POSITIVE, Antibody Screen NEGATIVE Imaging Radiology Impression Femur X-Ray 05/14/24 12:30 IMPRESSION: Nondisplaced impacted subcapital fracture of the proximal right femur. Reading Location: [facility] Pelvis X-Ray 05/14/24 12:30 IMPRESSION: Nondisplaced subcapital fracture proximal right femur. Reading Location: [facility] 05/14/24 13:00 IMPRESSION: Cerebral atrophy. No acute intracranial abnormality is seen. Reading Location: [facility] Chest X-Ray 05/14/24 13:15 IMPRESSION: Cardiomegaly with mild congestion. [facility] would state slightly displaced NOF fracture Assessment & Plan Assessment/Plan (1) Closed right hip fracture: PLAN: 68-year-old female with chronic lower extremity weakness with a right displaced femoral neck fracture. Discussed the diagnosis prognosis different treatment options available. Nonoperative high risk of complications like pneumonia blood clots and high risk of mortality. That being said surgery has risks. In my opinion the best operation with the lowest risk of reoperations would be a right cemented hemiarthroplasty (vs ORIF - possible non union or NESHA - higher risk of instability). Discussed the pros cons risk benefits of each of these methods of treatments patient wanst to go ahead with surgery in the form of right hip hemiarthroplasty. Talked to the OR charge nurse will try to get this done tomorrow in the afternoon at around noon. The patient to be DAMARI n.p.o. at midnight admitted under the hospitalist service and holding anticoagulation in the morning. The patient understands signed the consent form and sam to the right hip. Specific risks of the surgery instability fracture wear of the acetabulum trunnionosis or other problems. Pros and cons risks and benefits were discussed with the patient including but not limited to infection, pain, stiffness, bleeding, damage to surrounding structures, neurovascular injury, recurrence or retear, failure or wear of hardware or fixation, instability, fracture, deep vein thrombosis and pulmonary embolism, anesthetic risks, , patient dissatisfaction, need for further surgery and other risks. Patient understood and wished to proceed with surgery, and signed the informed consent documentation.
[2024-05-14] MEDS: Furosemide 40 MG/4 ML Vial IV (16:29)
[2024-05-14] MEDS: Insulin Lispro 100 UNIT/ML INSULN.PEN SC (18:29)
[2024-05-14 18:42] LABS: Bedside Glucose 226 mg/dL (74-106)
[2024-05-14] MEDS: HYDROmorphone 0.5 MG/0.5 ML SYRINGE IV (20:13)
[2024-05-14] MEDS: 0.9% Saline Lock 10 ML Syringe IV (20:14)
[2024-05-14] MEDS: Acetaminophen 500 MG Tablet 1000 MG PO (20:19)
[2024-05-14] MEDS: Doxazosin 1 MG Tablet 2 MG PO (20:20)
[2024-05-14] MEDS: Pantoprazole Sodium 40 MG Tablet PO (20:20)
[2024-05-14] MEDS: Gemfibrozil 600 MG Tablet PO (20:21)
[2024-05-14] MEDS: Venlafaxine HCl 75 MG Tablet 37.5 MG PO (20:21)
--- NOTE | 2024-05-14 21:41 | CASEMGMT ---
Care Management Face to Face with patient for initial transition planning/care coordination assessment in the ED.? This assembly instructions writer introduced self and role at [facility]. Patient alert and oriented. Patient willing to participate in assessment and is able to answer all questions appropriately.? Care providers, pharmacy, and demographics verified. Admitting Diagnosis: hip fx Other diagnosis history: ?MCCOY, chronic back pain, depression, COPD. CAD PCP: ?[facility] Specialists: patient sees telephone order supervisor, urology, pain management, unable to remember names of physicians Preferred Pharmacy: [facility] Insurance: [employer] Prescription Benefit: yes Living Will/HPOA: ? uncertain if they have one completed, states he will look at home LNOK: Living Arrangements: lives with and disabled son in 2 story home, patient only uses main floor.? Is able to dress self most days, assists with rest of ADLs and IADLs Transportation: DME: handrails, bedside commode, walker, shower chair, wheelchair, walker HHC: ?[facility], [facility] SNF[facility]Rehab: [facility] Community Resources: none Behavioral Health History: ?depression Patient goals: DC goals uncertain Disposition Plan: admission to acute; RN CM/SW to follow for discharge planning needs that may arise. Marge Pang, STAFF RESEARCH SCIENTIST, UNION LABORER
[2024-05-14 23:15] LABS: Bedside Glucose 225 mg/dL (74-106)
[2024-05-14] MEDS: tiZANidine HCl 2 MG Tablet 4 MG PO (23:21)
[2024-05-15] VITALS (19 sets, daily range): BP systolic 119–163; BP diastolic 45–75; PULSE 73–92; RESP 15–20; TEMP 36.2–37.1; O2SAT 92–100; BMI 27.5; BMI 27.4
[2024-05-15] MEDS: oxyCODONE 5 MG Tablet PO ×2 (00:14→06:21)
[2024-05-15] MEDS: HYDROmorphone 0.5 MG/0.5 ML SYRINGE IV (02:25)
[2024-05-15] MEDS: 0.9% Saline Lock 10 ML Syringe IV (02:25)
[2024-05-15 05:41] LABS: Hemoglobin A1c 7.4 % (<=5.6)
[2024-05-15 05:55] LABS: Absolute Lymphocyte Count 0.51 X10^3/uL (0.83-4.51); Absolute Neutrophil Count 6.2 X10^3/uL (2.0-7.7); Basophil# 0.06 X10^3/uL; Basophil% 0.8 % (0-1); Eosinophil# 0.19 X10^3/uL; Eosinophils% 2.6 % (0-5); Hematocrit 35.3 % (37-47); Hemoglobin 11.8 g/dL (12.0-15.0); Lymphocyte # 0.51 X10^3/ul (0.83-4.51); Lymphocyte % 6.9 % (19-41); Mean Corp Hgb Conc 33.4 g/dL (32-36); Mean Corpuscular Hgb 30.5 pg (27.0-32.0); Mean Corpuscular Volume 91.2 fL (81-99); Monocyte# 0.43 X10^3/uL; Monocyte% 5.8 % (0-10); NRBC Flagged by Analyzer 0 % (0-5); Neutrophil # 6.18 X10^3/uL (2.7-7.7); Neutrophil % 83.6 % (47-70); POSITIVE DIFFERENTIAL YES; Platelet Count 152 K/mm3 (150-450); RBC Distribution Width CV 13.4 % (11.6-14.6); RBC Distribution Width SD 44.9 fl (35.1-43.9); Red Blood Count 3.87 M/mm3 (4.2-5.4); White Blood Count 7.4 K/mm3 (4.4-11.0)
[2024-05-15 06:14] LABS: International Normalized Ratio 1.1; Prothrombin Time (Protime)PT. 13.9 SECONDS (11.7-14.9)
[2024-05-15] MEDS: Acetaminophen 500 MG Tablet 1000 MG PO ×2 (06:18→21:11)
[2024-05-15 06:26] LABS: ALB/GLOB Ratio 1.3 RATIO (0.9-2.4); AST(SGOT) 42 U/L (<=31); Alanine Aminotransfer ALT/SGPT 18 U/L (<=34); Albumin, Serum 3.9 g/dL (3.4-4.8); Alkaline Phosphatase 186 U/L (35-104); Anion Gap 15 (5-15); BUN 46 mg/dL (4-19); BUN/Creat Ratio 21.8 RATIO (10-20); Calcium,Total 9.3 mg/dL (7.6-11.0); Carbon Dioxide 19.8 mmol/L (21.0-32.0); Chloride 102 mmol/L (98-108); Creatinine, Serum 2.09 mg/dL (0.70-1.20); EST Glomerular Filtration Rate 25 (>60); Estimated Creatinine Clearance 27.58 ml/min (50-250); Glucose 155 mg/dL (70-99); Magnesium 2.2 mg/dL (1.5-2.2); Phosphorus 4.4 mg/dL (2.7-4.5); Potassium 4.4 mmol/L (3.3-5.1); Protein, Total 6.9 g/dL (5.9-8.4); Sodium Level 137 mmol/L (133-145); Total Bilirubin 0.77 mg/dL (0.00-1.30)
[2024-05-15 06:37] LABS: Bedside Glucose 157 mg/dL (74-106)
--- NOTE | 2024-05-15 08:16 | PCM.PN.HOSP ---
Reason for Visit Reason for Visit: Diagnoses Dizziness and giddiness (05/14/24) Fracture of unspecified part of neck of right femur, initial encounter for closed fracture (05/14/24) Unspecified fall, initial encounter (05/14/24) Subjective Subjective Tired. Objective Data Objective Data Vital Signs: Vital Signs Temp Pulse Resp BP Pulse Ox O2 Del Method O2 Flow Rate 36.8 C 78 16 122/51 H 94 Nasal Cannula 3 05/15/24 02:22 05/15/24 02:22 05/15/24 02:22 05/15/24 02:22 05/15/24 02:22 05/15/24 02:22 05/15/24 02:22 Oxygen Flow Rate (L/min) 3 Oxygen Delivery Method Nasal Cannula Weight: 79.5 kg Body Mass Index (BMI) 27.5 Intake & Output: Intake and Output for Last 24 Hours 05/14/24 05/14/24 05/15/24 00:59 23:59 23:59 Output Total 600 / 600 550 / 550 Balance -600 / -600 -550 / -550 Lab / Micro Data 05/15/24 05:44 05/15/24 05:44 Labs: Laboratory Results - last 24 hr 05/14/24 12:02: WBC 5.8, RBC 4.17 L, Hgb 12.7, Hct 38.0, MCV 91.1, MCH 30.5, MCHC 33.4, RDW Std Deviation 44.7 H, RDW Coeff of Juanito 13.5, Plt Count 137 L, MPV 12.7 H, Immature Gran % (Auto) 0.700, Neut % (Auto) 82.3 H, Lymph % (Auto) 7.7 L, [place] % (Auto) 6.4, Eos % (Auto) 2.4, Baso % (Auto) 0.5, Absolute Neuts (auto) 4.8, Absolute Lymphs (auto) 0.45 L, Nucleated RBC % 0, PT 13.5, INR 1.0, Sodium 140, Potassium 4.3, Chloride 105, Carbon Dioxide 18.3 L, Anion Gap 16 H, BUN 37 H, Creatinine 1.52 H, Estim Creat Clear Calc 37.94 L, Est GFR (MDRD) Non-Af 37 L, BUN/Creatinine Ratio 24.5 H, Glucose 206 H, Calcium 9.9 05/14/24 13:10: Hemoglobin A1c 7.4, Blood Type AB POSITIVE, Antibody Screen NEGATIVE 05/14/24 18:22: POC Glucose 226 H 05/14/24 22:50: POC Glucose 225 H 05/15/24 05:44: WBC 7.4, RBC 3.87 L, Hgb 11.8 L, Hct 35.3 L, MCV 91.2, MCH 30.5, MCHC 33.4, RDW Std Deviation 44.9 H, RDW Coeff of Juanito 13.4, Plt Count 152, MPV 11.0, Immature Gran % (Auto) 0.300, Neut % (Auto) 83.6 H, Lymph % (Auto) 6.9 L, [place] % (Auto) 5.8, Eos % (Auto) 2.6, Baso % (Auto) 0.8, Absolute Neuts (auto) 6.2, Absolute Lymphs (auto) 0.51 L, Nucleated RBC % 0, PT 13.9, INR 1.1, Sodium 137, Potassium 4.4, Chloride 102, Carbon Dioxide 19.8 L, Anion Gap 15, BUN 46 H, Creatinine 2.09 H, Estim Creat Clear Calc 27.58 L, Est GFR (MDRD) Non-Af 25 L, BUN/Creatinine Ratio 21.8 H, Glucose 155 H, Calcium 9.3, Phosphorus 4.4, Magnesium 2.2, Total Bilirubin 0.77, AST 42 H, ALT 18, Alkaline Phosphatase 186 H, Total Protein 6.9, Albumin 3.9, Globulin 3.0, Albumin/Globulin Ratio 1.3 05/15/24 06:12: POC Glucose 157 H Radiography Diagnostic Testing: Radiology Impression Femur X-Ray 05/14/24 12:30 IMPRESSION: Nondisplaced impacted subcapital fracture of the proximal right femur. Reading Location: [facility] Pelvis X-Ray 05/14/24 12:30 IMPRESSION: Nondisplaced subcapital fracture proximal right femur. Reading Location: [facility] 05/14/24 13:00 IMPRESSION: Cerebral atrophy. No acute intracranial abnormality is seen. Reading Location: [facility] Chest X-Ray 05/14/24 13:15 IMPRESSION: Cardiomegaly with mild congestion. Reading Location: [facility] Physical Exam Const Constitutional Narrative: listless. dozes off during encounter. HEENT head/scalp atraumatic and moist oral mucous membranes Cardio regular rate, regular rhythm, S1 normal heart sound and S2 normal heart sound GI normal to inspection, nondistended, normoactive bowel sounds, soft to palpation, non-tender and non-distended Extremity normal to inspection and full ROM Assessment & Plan Assessment/Plan (1) Closed right hip fracture: PLAN: s/p mechanical fall. Right intertrochanteric fracture Seen by Dr. Velasco who is planning on taking patient to surgery today. check 25 OH-d level PLAN: Plan Debility: post surgery. PT OT eval and treat. Anticipate patient will require SNF when stable for discharge Chronic conditions: HTN: continue amlodipine, isosorbide, losartan Depression: venlafaxine VTE prophylaxis: SCDs. DW patient's . Charges/Coding Visit Charges Inpatient E&M: 66379 Subs Hosp L2
[2024-05-15] MEDS: 0.9% Normal Saline (1000mL) 1,000 ML 15 ML IV (11:07)
--- NOTE | 2024-05-15 11:51 | PCM.PN.ORT ---
Subjective Subjective No changes. patient has right hip pain at the moment. pending surgery. Objective Data Objective Data Vital Signs: Vital Signs Temp Pulse Resp BP Pulse Ox O2 Del Method O2 Flow Rate 98.3 F 80 18 143/59 H 94 Nasal Cannula 4 05/15/24 09:35 05/15/24 09:35 05/15/24 09:35 05/15/24 09:35 05/15/24 09:35 05/15/24 09:44 05/15/24 09:44 Oxygen Flow Rate (L/min) 4 Oxygen Delivery Method Nasal Cannula Weight: 175 lb 4.28 oz Body Mass Index (BMI) 27.4 Intake & Output: Intake and Output for Last 24 Hours 05/14/24 05/14/24 05/15/24 00:59 23:59 23:59 Output Total 600 / 600 700 / 700 Balance -600 / -600 -700 / -700 Lab / Micro Data 05/15/24 05:44 05/15/24 05:44 Labs: Laboratory Results - last 24 hr 05/14/24 12:02: WBC 5.8, RBC 4.17 L, Hgb 12.7, Hct 38.0, MCV 91.1, MCH 30.5, MCHC 33.4, RDW Std Deviation 44.7 H, RDW Coeff of Juanito 13.5, Plt Count 137 L, MPV 12.7 H, Immature Gran % (Auto) 0.700, Neut % (Auto) 82.3 H, Lymph % (Auto) 7.7 L, [place] % (Auto) 6.4, Eos % (Auto) 2.4, Baso % (Auto) 0.5, Absolute Neuts (auto) 4.8, Absolute Lymphs (auto) 0.45 L, Nucleated RBC % 0, PT 13.5, INR 1.0, Sodium 140, Potassium 4.3, Chloride 105, Carbon Dioxide 18.3 L, Anion Gap 16 H, BUN 37 H, Creatinine 1.52 H, Estim Creat Clear Calc 37.94 L, Est GFR (MDRD) Non-Af 37 L, BUN/Creatinine Ratio 24.5 H, Glucose 206 H, Calcium 9.9 05/14/24 13:10: Hemoglobin A1c 7.4, Blood Type AB POSITIVE, Antibody Screen NEGATIVE 05/14/24 18:22: POC Glucose 226 H 05/14/24 22:50: POC Glucose 225 H 05/15/24 05:44: WBC 7.4, RBC 3.87 L, Hgb 11.8 L, Hct 35.3 L, MCV 91.2, MCH 30.5, MCHC 33.4, RDW Std Deviation 44.9 H, RDW Coeff of Juanito 13.4, Plt Count 152, MPV 11.0, Immature Gran % (Auto) 0.300, Neut % (Auto) 83.6 H, Lymph % (Auto) 6.9 L, [place] % (Auto) 5.8, Eos % (Auto) 2.6, Baso % (Auto) 0.8, Absolute Neuts (auto) 6.2, Absolute Lymphs (auto) 0.51 L, Nucleated RBC % 0, PT 13.9, INR 1.1, Sodium 137, Potassium 4.4, Chloride 102, Carbon Dioxide 19.8 L, Anion Gap 15, BUN 46 H, Creatinine 2.09 H, Estim Creat Clear Calc 27.58 L, Est GFR (MDRD) Non-Af 25 L, BUN/Creatinine Ratio 21.8 H, Glucose 155 H, Calcium 9.3, Phosphorus 4.4, Magnesium 2.2, Total Bilirubin 0.77, AST 42 H, ALT 18, Alkaline Phosphatase 186 H, Total Protein 6.9, Albumin 3.9, Globulin 3.0, Albumin/Globulin Ratio 1.3 05/15/24 06:12: POC Glucose 157 H Radiography Diagnostic Testing: Radiology Impression Femur X-Ray 05/14/24 12:30 IMPRESSION: Nondisplaced impacted subcapital fracture of the proximal right femur. Reading Location: [facility] Pelvis X-Ray 05/14/24 12:30 IMPRESSION: Nondisplaced subcapital fracture proximal right femur. Reading Location: [facility] 05/14/24 13:00 IMPRESSION: Cerebral atrophy. No acute intracranial abnormality is seen. Reading Location: [facility] Chest X-Ray 05/14/24 13:15 IMPRESSION: Cardiomegaly with mild congestion. Reading Location: [facility] Assessment & Plan Assessment/Plan (1) Closed right hip fracture: PLAN: 68 F with R femoral neck fracture. no further questions from her or . will proceed.
--- NOTE | 2024-05-15 12:00 | FEM_PTH ---
PATIENT: IVIS MURRELL LOC: MS3 U#:[id number] AGE/SX: 68/F ROOM: MD312 RE05/14/[address]: Dr. Tadeo Tristan DO : 1955 BED: 1 DIS: 05/18/2024 SPEC #: [id number] RECD: 05/16/24 10:37 STATUS: KESHAV JANIE #: [id number] NANDO: 05/15/24 12:[address]: Lam Velasco DEPT: SURGICAL PATHOLOGY RECD BY: Tristan Kiser ENTERED: 05/16/24 10:38 SP TYPE: FEM HEAD OTHR DR: DO Dr. Kavita Espinosa DO Dr. Nathaniel Enders, MD Tissues: Femoral region, NOS Procedures: Decalcification bone/plaque Surgery Specimen Level V HEADER OPERATION: Hemiarthroplasty, hip PRE-OP DIAGNOSIS: Nondisplaced subcapital fracture proximal right femur TISSUE SUBMITTED: Right femoral head MICROSCOPIC DIAGNOSIS RIGHT FEMORAL HEAD, EXCISION/RIGHT HIP HEMIARTHROPLASTY:Femoral head with thin trabecula directly underneath the slightly roughened articular surface. MICROSCOPIC DESCRIPTION Slides are reviewed. GROSS DESCRIPTION Received is one container labeled with the patient's name and designated right femoral head The specimen consists of a boland femoral head measuring 4.5 x 4.2 x 4.2 cm. The resection margin is ragged and hemorrhagic. The articular surface has mild degenerative changes including pitting. It is focally loose from the underlying hemorrhagic bone. Also in the container is one detached piece of bone measuring 2.2 x 2 x 0.7 cm. Radio Script Writer sections are submitted in 3 cassettes after decalcification. RS3. EH 05/16/24 Cassette summary: A1-ragged hemorrhagic bone from proximal margin A2,A3- sections of femoral head. CPT: 86710, 09327, TC:5
--- NOTE | 2024-05-15 12:03 | PCM.PRE.AN2 ---
ASA Classification* ASA Classification ASA Classification: 4 and E (Patient will require arterial line, 5 lead EKG, T&C with 2 units on standby) Assessment & Plan Anesthesia* Anesthesia Assessment Anesthesia Assessment: Discussed sedation and/or anesthesia options, risks, benefits, and alternatives with patient/parents/legal guardian/POA. Questions invited. The patient/parents/legal guardian/POA seems to understand and agrees to proceed with anesthesia plan. Reviewed the physical assessment, medical history, allergy history and patient home medications list prior to surgery/procedure/anesthetic and documented any changes. Performed airway and anesthesia risk assessments. Anesthesia Type Anesthesia Type: General History Source History Obtained from:: Patient, Chart and Significant Other Anesthesia Focused Assessment* Temperature: 98.3 F Pulse Rate: 80 Blood Pressure: 143/59 Respiratory Rate: 18 Pulse Ox: 94 Oxygen Delivery Method: Nasal Cannula Oxygen Flow Rate (L/min): 4 Airway Assessment Mouth opens: 2 cm Mallampati Score: IV Teeth Condition: Intact Neck Range of motion (ROM): Full ROM Focused Labs Anesthesia Preop lab: CBC WBC 7.4 K/mm3 (4.4-11.0) 05/15/24 05:44 05/15/24 RBC 3.87 M/mm3 (4.2-5.4) L 05/15/24 05:44 05/15/24 Hgb 11.8 g/dL (12.0-15.0) L 05/15/24 05:44 05/15/24 Hct 35.3 % (37-47) L 05/15/24 05:44 05/15/24 Plt Count 152 K/mm3 (150-450) 05/15/24 05:44 05/15/24 CHEMISTRY Potassium 4.4 mmol/L (3.3-5.1) 05/15/24 05:44 05/15/24 Sodium 137 mmol/L (133-145) 05/15/24 05:44 05/15/24 Magnesium 2.2 mg/dL (1.5-2.2) 05/15/24 05:44 05/15/24 Phosphorus 4.4 mg/dL (2.7-4.5) 05/15/24 05:44 05/15/24 BUN 46 mg/dL (4-19) H 05/15/24 05:44 05/15/24 Creatinine 2.09 mg/dL (0.70-1.20) H 05/15/24 05:44 05/15/24 Glucose 155 mg/dL (70-99) H 05/15/24 05:44 05/15/24 POC Glucose 157 mg/dL (74-106) H 05/15/24 06:12 05/15/24 COAG PT 13.9 SECONDS (11.7-14.9) 05/15/24 05:44 05/15/24 Pre-Assessment Diagnosis/Proposed Procedure Planned Operative Procedure(s): Right hip hemiarthroplasty. 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 When Was Last Pacemaker Check QUESTION #4 FULL TEXT: You/Your Family Experience fever (hyperthermia) with Anesthesia Any additional information?: No Last Oral Intake Last Oral intake: Last Oral Intake NPO since 00:00 05/15/24 09:51 Meds taken in AM with sips of Yes 05/15/24 09:51 water? 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 Female HX of Motion Sickness HX of N/V After Surgery Non-Smoker Duration of Surgery greater than 60 minutes Number of Risk Factors PONV Score Any additional information?: No Height & Weight Height & Weight: Anesthesia: Height & Weight Height 5 ft 7 in 05/15/24 09:51 Weight: 79.5 kg 05/15/24 09:51 Body Mass Index (BMI) 27.4 05/15/24 09:51 Respiratory Assessment Respiratory Assessment - chucking lathe operator: Respiratory Tract Infection Hx - chucking lathe operator Hx Respiratory Tract Infection No 05/14/24 23:00 Any additional information?: No STOP Sleep Apnea STOP Sleep Apnea - chucking lathe operator: STOP Sleep Apnea - chucking lathe operator Hx Hypertension No 05/14/24 18:37 Hx Sleep Apnea No 05/14/24 18:37 CPAP BIPAP Do you snore loudly (louder No 05/14/24 18:37 than talking or can be heard Do you often feel tired/ No 05/14/24 18:37 fatigued/ sleepy during daytime? Has anyone observed you stop No 05/14/24 18:37 breathing during sleep? STOP Results Negative 05/14/24 18:37 QUESTION #5 FULL TEXT : Do you snore loudly (louder than talking or can be heard through closed doors)? 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 Specify any problems Hx of Preganancy in last 3 No 05/14/24 18:37 Months Nurse Filling Out Transfusion JDIAL 05/14/24 18:37 & Questions: Date: 05/14/24 05/14/24 18:37 Time: 18:40 05/14/24 18:37 Patient unable to answer at this time (ie. 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 INHALATION Q2H PRN PRN SOB &/OR WHEEZING Albuterol/Ipratropium 3 ml 05/14/24 17:46 Ipratropium/Albuterol Sulfate 3 Ml Ampul.Neb INHALATION Q6HWA.RT PATSY Amlodipine Besylate 5 mg 05/15/24 10:00 05/15/24 10:02 Amlodipine 5 Mg Tablet PO Not Given DAILY [facility] Protocol Aspirin 81 mg 05/15/24 08:00 05/15/24 10:01 Aspirin E.C. 81 Mg Tablet PO Not Given BREAKFAST [facility] Budesonide 0.5 mg 05/14/24 18:15 Budesonide Respules 0.5 Mg/2 Ml Ampul.Neb. INHALATION Q12H.RT PATSY Clarify Med Order 1 each 05/15/24 10:00 Clarify Order NOTE CLARIFY PATSY Colestipol HCl 1 gm 05/15/24 10:00 05/15/24 10:01 Colestipol 1 Gm Tablet PO Not Given DAILY [facility] Cyanocobalamin 500 mcg 05/15/24 10:00 05/15/24 10:02 Cyanocobalamin 500 Mcg Tablet PO Not Given DAILY [facility] Doxazosin Mesylate 2 mg 05/14/24 22:00 05/15/24 10:01 Doxazosin 1 Mg Tablet PO Not Given BID [facility] Enoxaparin Sodium 30 mg 05/15/24 22:00 Enoxaparin 30 Mg/0.3 Ml Syringe SC DAILY [facility] Ergocalciferol 1.25 mg 05/20/24 10:00 Ergocalciferol 1.25 Mg (50, 000 Unit) Capsule PO Curran@1000 [facility] Ferrous Sulfate 325 mg 05/15/24 12:00 Ferrous Sulfate 325 Mg Tablet PO DAILY@1200 [facility] Fluticasone Propionate 1 spray 05/15/24 22:00 Fluticasone 0.05% 1 [place] Nasal.Sry NASAL QHS [facility] Furosemide 40 mg 05/15/24 10:00 05/15/24 10:01 Furosemide 40 Mg Tablet PO Not Given DAILY PATSY Gemfibrozil 600 mg 05/14/24 22:00 05/15/24 10:02 Gemfibrozil 600 Mg Tablet PO Not Given BID PATSY Glucagon 1 mg 05/14/24 17:46 Glucagon 1 Mg/Ml Syringe IM X1 PRN HYPOGLYCEMIA Protocol Guaifenesin 20 ml 05/14/24 17:46 Guaifenesin 10 Ml Udc (200mg/10ml) PO Q4H PRN PRN COUGH Hydromorphone HCl 0.5 mg 05/14/24 17:46 05/15/24 02:25 Hydromorphone 0.5 Mg/0.5 Ml Syringe IV 0.5 mg Q3H PRN PRN Administration Pain Score 6-10 Dextrose 250 mls @ 0 mls/hr 05/14/24 17:46 Dextrose 10%-Water IV .Q0M PRN HYPOGLYCEMIA Protocol As Directed Sodium Chloride 1,000 mls @ 15 mls/hr 05/15/24 11:10 05/15/24 11:07 IV 05/21/24 00:29 15 mls/hr .Q48H PATSY Administration Protocol Insulin Human Lispro 0 unit 05/14/24 17:46 05/15/24 11:33 Insulin Lispro 100 Unit/Ml Insuln.Pen SC Not Given TIDAC PATSY Protocol Isosorbide Mononitrate 60 mg 05/15/24 10:00 05/15/24 10:01 Isosorbide Mononitrate 60 Mg Tablet PO Not Given DAILY PATSY Protocol Lactic Acid 1 applic 05/14/24 17:46 Ammonium Lactate 225 Gm Bottle TOPICAL DAILY PRN dry skin Protocol Lactulose 20 gm 05/14/24 17:46 Lactulose 20 Gm/30 Ml Udc PO TID PRN constipation Losartan Potassium 25 mg 05/15/24 10:00 05/15/24 10:01 Losartan Potassium 25 Mg Tablet PO Not Given DAILY PATSY Protocol Melatonin 3 mg 05/14/24 17:46 Melatonin 3 Mg Tablet PO QHS PRN PRN INSOMNIA Multivitamins 1 tablet 05/15/24 08:00 05/15/24 10:01 Multivitamins,Therapeutic Tablet PO Not Given DAILYCM PATSY Ondansetron HCl 4 mg 05/14/24 17:46 Ondansetron 4 Mg/2 Ml Vial IV Q8H PRN PRN NAUSEA/VOMITING Oxycodone HCl 5 mg 05/14/24 17:46 05/15/24 06:21 Oxycodone 5 Mg Tablet PO 5 mg Q4H PRN PRN Administration Pain Score 4-10 Pantoprazole Sodium 40 mg 05/14/24 22:00 05/15/24 10:02 Pantoprazole Sodium 40 Mg Tablet PO Not Given BID [facility] Polysaccharide Iron Complex 150 mg 05/14/24 22:00 Iron Polysaccharide Complex 150 Mg Capsule PO BID PATSY Senna/Docusate Sodium 2 tablet 05/14/24 17:46 Senna/Docusate Sodium 1 Tablet PO BID PRN PRN Constipation Sodium Chloride 10 - 40 ml 05/14/24 18:46 05/15/24 02:25 0.9% Saline Lock 10 Ml Syringe IV 10 ml UD PRN Administration SALINE FLUSH Spironolactone 25 mg 05/15/24 10:00 05/15/24 10:01 Spironolactone 25 Mg Tablet PO Not Given DAILY [facility] Protocol Tizanidine HCl 4 mg 05/14/24 17:46 05/14/24 23:21 Tizanidine Hcl 2 Mg Tablet PO 05/16/24 17:47 4 mg Q8H PRN PRN Administration spasms/musculoskeletal pain Venlafaxine HCl 37.5 mg 05/14/24 22:00 05/15/24 10:01 Venlafaxine Hcl 75 Mg Tablet PO Not Given BID [facility] Medical History Chronic back pain MCCOY (nonalcoholic steatohepatitis) Tobacco abuse Urinary bladder incontinence Depression GERD (gastroesophageal reflux disease) Hyperlipidemia COPD (chronic obstructive pulmonary disease) Diabetes Coronary artery disease Hypertension unable to obtain (Patient has had vascular work done at [facility]. States she has had fem-fem bypass. ) Home Medications ?Medication ?Instructions ?Recorded ?Last Taken ?Type albuterol sulfate 90 mcg/actuation 2 inh inhalation Q4H PRN shortness 05/14/24 Unknown History breath activated powder of breath inhaler,sensor (Proair Digihaler) amlodipine 5 mg tablet 5 mg PO DAILY BLOOD PRESSURE 05/14/24 05/14/24 History ammonium lactate 12 % lotion 1 applic topical DAILY PRN dry skin 05/14/24 Unknown History aspirin 81 mg tablet,delayed 81 mg PO DAILY PAIN 05/14/24 05/14/24 History release (Adult Aspirin Regimen) coenzyme Q10 100 mg capsule (Co 100 mg PO BID SUPPLEMENT 05/14/24 05/14/24 History Q-10) colesevelam 625 mg tablet 1,875 mg PO QHS CHOLESTROL 05/14/24 05/12/24 History cyanocobalamin (vitamin B-12) 500 500 mcg PO DAILY SUPPLEMENT 05/14/24 05/14/24 History mcg tablet doxazosin 2 mg tablet 2 mg PO BID BLOOD PRESSURE 05/14/24 05/14/24 History ergocalciferol (vitamin D2) 1,250 1,250 mcg PO CURRAN SUPPLEMENT 05/14/24 Unknown History mcg (50,000 unit) capsule ferrous sulfate 325 mg (65 mg 325 mg PO DAILY SUPPLEMENT 05/14/24 05/14/24 History iron) tablet (Neetu-Time) fluticasone fur. 100 mcg-umeclid 1 ea inhalation DAILY ASTHMA 05/14/24 05/14/24 History 62.5 mcg-vilant 25 mcg inhalat.powder (Trelegy Ellipta) fluticasone propionate 50 1 spray intranasal QHS ALLERGIES 05/14/24 05/12/24 History mcg/actuation nasal spray,suspension gemfibrozil 600 mg tablet 600 mg PO BID CHOLESTROL 05/14/24 05/14/24 History isosorbide mononitrate 60 mg 60 mg PO DAILY ANGINA 05/14/24 05/14/24 History tablet,extended release 24 hr lactulose 10 gram/15 mL oral 30 ml PO TID PRN constipation 05/14/24 Unknown History solution losartan 25 mg tablet 25 mg PO DAILY BLOOD PRESSURE 05/14/24 05/14/24 History magnesium glycinate 100 mg (as 200 mg PO DAILY SUPPLEMENT 05/14/24 05/14/24 History glycinate) tablet (Mag Glycinate) multivitamin (Daily Multi-Vitamin 1 tab PO DAILY SUPPLEMENT 05/14/24 05/14/24 History tablet) pantoprazole 40 mg tablet,delayed 40 mg PO BID STOMACH ACID 05/14/24 05/14/24 History release polysaccharide iron complex 150 mg 150 mg PO BID SUPPLEMENT 05/14/24 05/14/24 History iron capsule sitagliptin phosphate 50 mg tablet 50 mg PO DAILY DIABETES 05/14/24 05/14/24 History (Januvia) spironolactone 25 mg tablet 25 mg PO DAILY WATER PILL 05/14/24 05/14/24 History torsemide 20 mg tablet 20 mg PO DAILY BLOOD PRESSURE 05/14/24 05/14/24 History triamcinolone acetonide 55 mcg 2 spray intranasal DAILY ALLERGIES 05/14/24 05/14/24 History nasal spray aerosol trospium 20 mg tablet 20 mg PO BID OVERRACTIVE BLADDER 05/14/24 05/14/24 History venlafaxine 37.5 mg tablet 37.5 mg PO BID DEPRESSION 05/14/24 05/14/24 History Allergy/AdvReac Type Severity Reaction Status Date / Time diltiazem Allergy Intermediate RASH Verified 05/14/24 12:04 grass pollen Allergy Intermediate Itching Verified 05/14/24 12:04 hydralazine Allergy Intermediate Other Verified 05/14/24 12:04 metoprolol (From Toprol XL) Allergy Intermediate Itching Verified 05/14/24 12:04 mold Allergy Intermediate Hives Verified 05/14/24 12:04 tomato Allergy Intermediate Itching Verified 05/14/24 12:04 vancomycin Allergy Intermediate Hives Verified 05/14/24 12:04 strawberry (strawberries) Allergy Itching Verified 05/14/24 12:04 NSAIDS (Non-Steroidal AdvReac Mild Other Verified 05/14/24 12:04 Anti-Inflamma pravastatin (From Pravachol) AdvReac Mild Hives Verified 05/14/24 12:04 bupropion (From Wellbutrin) AdvReac PASSES OUT Verified 05/14/24 12:04 Family History Other Diabetes Hypertension Surgical History S/P placement of nerve stimulator Social History (Updated 05/14/24 @ 16:[address] Kavita Johnson DO) household members: spouse housing: house Smoking Status: Former smoker alcohol intake: never substance use type: does not use Addt'l Information Additional Findings: Prior testing unavailable. Patient reports having a history of MN many years ago. Was on plavix and ASA however stopped approximately 12 months ago secondary to declining kidney function. Review of Systems (Anesthesia) ROS Narrative System reviewed and no additional complaints, except as documented. Physical Exam Const alert and oriented x3 General Appearance: in distress Resp normal respiratory effort, normal air movement and clear to auscultation bilaterally Cardio regular rate, regular rhythm, no murmurs and diaphoretic
[2024-05-15] MEDS: TXA 1000mg in NS100 100ml (IVPB at Incision) 660 MG IV (12:41)
[2024-05-15] MEDS: Cefazolin 2 GM in Syringe IV (12:41)
[2024-05-15] MEDS: Albumin Human 25% (100 mL) 25 GM/100 ML BAG IV (13:10)
[2024-05-15 13:27] LABS: Base Excess -2 mmol/L (-2 to +2); Bicarbonate 23.2 mmol/L (22-26); Blood Gas Specimen Type ART; Mode Not entered; O2 Delivery Device Not entered; PO2 158 mmHG (75-100); SITE Art Line; SO2 99 % (95-99); Total Carbon Dioxide 25 mmol/L; pCO2 42.1 mmHg (35-45); pH 7.35 (7.35-7.45)
[2024-05-15] MEDS: TXA 1000mg in NS100 100ml (IVPB at Closure) 660 MG IV (14:05)
--- NOTE | 2024-05-15 14:15 | OP.PCM_ITS ---
Problems Associated Problem List Diagnoses (1) Closed right hip fracture: Procedures Musculoskeletal [id number]: Other Procedure See Report Operative Report (Standard) Operative Information Date of Procedure: 05/15/24 Pre-Operative Diagnosis: R femoral neck fracture Post-Operative Diagnosis: same Surgery/Procedure Performed: L hip cemented dylan arthroplasty stereotyper: Yes Capping Machine Operator: gordy Tasks completed by speech assistant: Retracting Type of Anesthesia: General and Local RN Documented Start/Stop Times: Operation Date: 05/15/24 12:00 Case Time Into Pre-Op 05/15/24 10:58 Anesthesia Start 05/15/24 12:21 Into Room 05/15/24 12:21 Procedure Start 05/15/24 13:03 Procedure Start Time: 13:03 Procedure Stop Time: 14:14 Select all DRAINS/GRAFTS/IMPLANTS that apply: Prosthetic device Prosthetic device details: Lak[place]mi accolade stem 4, 48mm bipolar head, 0mm insert Estimated Blood Loss: 100 Specimen collected: Yes Description of specimen(s) removed: femoral head Description of surgery: Patient brought to the operating theater. Placed supine on the table. General anesthesia induced. 1 g IV tranexamic acid at the start time 1 g IV tranexamic acid at the end of the case. 2 g IV Ancef administered prior to the start of the case. Patient transferred left side up lateral decubitus Chandan hip positioner appropriately padded. SCD on the nonoperative leg. Axillary roll used. Leg prepped and draped in the usual sterile fashion allowing over 3 minutes drying time prior to draping with chlorhexidine-based prep solution. Preoperative timeout performed to confirm the site patient and the surgery. Began by making a standard lateral incision centered over the proximal femur. Carried the dissection down through skin and subcutaneous tissue achieved meticulous hemostasis. Incised the tensor fascia puneet in line with the skin incision. I then sharply released the anterior one third of the abductors from the greater trochanter of the hip. I then made a T-shaped capsulotomy and put stay sutures in each limb. Identified the acetabulum. Identified the fracture site. I remove the femoral head. I made my neck cut approximately 1 cm above the level of the lesser trochanter. I sized the head to a size 48 mm. I thoroughly irrigated the acetabulum removed any debris. I then used the lateralizing box osteotome followed by broaching up to a size 5 with trialing the 132 degree offset with a size 48mm mm head, -3mm offset. Was quite tight so downsized stem to 4, and trialled with final stem to 0mm offset. This achieved good reduction and appropriate fit with appropriate flexion internal rotation a nd external rotation with extension no instability and no impingement. Equal leg lengths. Trial components removed. I then turned my attention back to the femur using the preparation devices, pulse lavage, Irrisept which I used irrigate throughout the case as well as the padded suction device. I sized for a centralizer to a 12mm, and then large cement restrictor, placed this after appropriate period of time of suctioning the canal. I selected my final implants the [place] Accolade size 4. Mixed cement using third-generation cement techniques. I cemented the femur use the pressurizing system. I then inserted the final component into the canal patient was stable throughout cementing. I cleaned away any excess cement. Thoroughly irrigated the acetabulum. I cleaned the trunnion thoroughly. I then impacted the final head size 48 mm bipolar, 0mm inner. The Johnson taper was stable and solid. I then reduced the hip again this was trialed and felt to be of appropriate length no impingement no instability. Appropriate length in terms of leg lengths and normal shuck test, no instability. I then closed the capsule using #1 Vicryl suture, abductors were repaired to the greater trochanter with FiberWire suture. I then used the barbed suture #1 stratafix running locking suture for the repair of the tensor fascia puneet. Again soft tissues were thoroughly irrigated followed by closure of the subcutaneous tissue with 2-0 Vicryl sutures and skin with 3-0 Monocryl. 20 cc of 0.25% bupivacaine instilled in and around the soft tissues. Skin cleaned with wet and dry dressing followed application of Steri-Strips and silver Mepilex dressing. Patient transferred off the operating room table, case terminated. All sponge needle instrument counts were correct no complications plan for the patient readmitted under the hospitalist service VTE prophylaxis xarelto 10mg po OD 30 days, and postoperative x-ray and weightbearing as tolerated with PT and OT to assess. CPT 36685 Surgical Findings: as above Complications Complications: No Admit VTE Documentation VTE Present on Admission: No VTE Mechan Device Prophylaxis: SCD's VTE Pharm Prophylaxis ordered?: Yes
[2024-05-15 14:17] LABS: Hematocrit 32.2 % (37-47); Hemoglobin 10.6 g/dL (12.0-15.0); Mean Corp Hgb Conc 32.9 g/dL (32-36); Mean Corpuscular Hgb 30.5 pg (27.0-32.0); Mean Corpuscular Volume 92.5 fL (81-99); Mean Platelet Vol. 11.7 fl (6.2-12.0); Platelet Count 138 K/mm3 (150-450); RBC Distribution Width CV 13.5 % (11.6-14.6); RBC Distribution Width SD 46.2 fl (35.1-43.9); Red Blood Count 3.48 M/mm3 (4.2-5.4); White Blood Count 6.9 K/mm3 (4.4-11.0)
--- NOTE | 2024-05-15 14:37 | PCM.POST.ANE ---
Anesthesia: Postop Eval I Current Vital Signs Temperature: 97.2 F Pulse Rate: 81 Blood Pressure: 155/72 Respiratory Rate: 15 Pulse Ox: 98 Oxygen Delivery Method: Nasal Cannula Oxygen Flow Rate (L/min): 4 Assessment Airway patent: Yes Spontaneous unlabored respirations: Yes Mental status: Awake and Calm nausea: No Vomiting: No Anesthesia Complication: No Fluid Hydration Crystalloid volume administer (ml): 600 Colloids volume administered (ml): 100 Total IV fluid infused: 700 Progress Note Anesthesia document: Postop Eval 1 completed: Yes
--- NOTE | 2024-05-15 14:55 | RAD_ITS ---
PROCEDURE: HIP MIN 2 VIEWS (PORTABLE) REASON FOR EXAM: POST OP AP ONLY TECHNIQUE: One (1) view of the right hip COMPARISON: Comparison is made with prior study dated May 14, 2024. FINDINGS: The patient is status post right hip replacement. There is good alignment. Postoperative soft tissue changes. RAD/Hip Min 2 Views (Portable) IMPRESSION: Status post right total hip replacement. There is good alignment. Postoperative soft tissue changes. Reading Location: [place] [id number]
[2024-05-15 16:48] LABS: Bedside Glucose 219 mg/dL (74-106)
[2024-05-15] MEDS: Insulin Lispro 100 UNIT/ML INSULN.PEN SC ×2 (17:12→22:45)
[2024-05-15] MEDS: Ferrous Gluconate 324 MG Tablet PO (17:14)
[2024-05-15 18:29] LABS: Vitamin D,25 Hydroxy 43.9 ng/mL (30-100)
--- NOTE | 2024-05-15 18:40 | POSTOPAN2_ITS ---
Anesthesia Postop Eval I Sum Postop Eval Completion status Anesthesia document: Postop Eval 1 completed: Yes Anesthesia Postop Eval I Summary Anesthesia Postop Eval I Summary: Anesthesia Postop Eval I: Assessment Summary Airway patent Yes 05/15/24 14:38 [email or web address] Spontaneous unlabored Yes 05/15/24 14:38 [email or web address] [email or web address] respirations Mental status Awake,Calm 05/15/24 14:38 [email or web address] nausea No 05/15/24 14:38 [email or web address] Vomiting No 05/15/24 14:38 [email or web address] Anesthesia Postop Eval I: Fluid Summary Crystalloid volume administer 600 05/15/24 14:38 [email or web address] [email or web address] (ml) Colloids volume administered ( 100 05/15/24 14:38 [email or web address] [email or web address] ml) Blood Product volume administered (ml) Total IV fluid infused 700 05/15/24 14:38 [email or web address] [email or web address] Anesthesia Postop Eval I: Summary Notes Anesthesia Complication No 05/15/24 14:38 [email or web address] [email or web address] Anesthesia Complication Comment: Post-operative progress note Anesthesia: Postop Eval II Evaluation Mental status: Awake Pain Level: 0 nausea: No Vomiting: No Complications Anesthesia Complication: No
--- NOTE | 2024-05-15 18:40 | PCM.POSTANE2 ---
Anesthesia Postop Eval I Sum Postop Eval Completion status Anesthesia document: Postop Eval 1 completed: Yes Anesthesia Postop Eval I Summary Anesthesia Postop Eval I Summary: Anesthesia Postop Eval I: Assessment Summary Airway patent Yes 05/15/24 14:38 [email or web address] Spontaneous unlabored Yes 05/15/24 14:38 [email or web address] respirations Mental status Awake,Calm 05/15/24 14:38 [email or web address] nausea No 05/15/24 14:38 [email or web address] Vomiting No 05/15/24 14:38 [email or web address] Anesthesia Postop Eval I: Fluid Summary Crystalloid volume administer 600 05/15/24 14:38 [email or web address] (ml) Colloids volume administered ( 100 05/15/24 14:38 [email or web address] ml) Blood Product volume administered (ml) Total IV fluid infused 700 05/15/24 14:38 [email or web address] Anesthesia Postop Eval I: Summary Notes Anesthesia Complication No 05/15/24 14:38 [email or web address] Anesthesia Complication Comment: Post-operative progress note Anesthesia: Postop Eval II Evaluation Mental status: Awake Pain Level: 0 nausea: No Vomiting: No Complications Anesthesia Complication: No
[2024-05-15] MEDS: Venlafaxine HCl 75 MG Tablet 37.5 MG PO (21:11)
[2024-05-15] MEDS: Doxazosin 1 MG Tablet 2 MG PO (21:11)
[2024-05-15] MEDS: Pantoprazole Sodium 40 MG Tablet PO (21:12)
[2024-05-15] MEDS: Gemfibrozil 600 MG Tablet PO (21:12)
[2024-05-15] MEDS: CARBOXYMETHYLCELLULOSE SODIUM 1 DRP DROPS 2 DRP OPHTHALMIC (21:13)
[2024-05-15 21:21] LABS: Bedside Glucose 319 mg/dL (74-106)
[2024-05-16] VITALS (9 sets, daily range): BP systolic 110–154; BP diastolic 51–66; PULSE 80–83; RESP 12–18; TEMP 36.6–36.9; O2SAT 94–98; BMI 27.8
[2024-05-16] MEDS: oxyCODONE 5 MG Tablet PO ×2 (01:08→05:48)
[2024-05-16] MEDS: HYDROmorphone 0.5 MG/0.5 ML SYRINGE IV (02:27)
[2024-05-16] MEDS: 0.9% Saline Lock 10 ML Syringe IV ×3 (02:27→17:17)
[2024-05-16] MEDS: tiZANidine HCl 2 MG Tablet 4 MG PO (04:25)
[2024-05-16] MEDS: Acetaminophen 500 MG Tablet 1000 MG PO ×2 (05:48→17:14)
[2024-05-16] MEDS: Insulin Lispro 100 UNIT/ML INSULN.PEN SC ×2 (06:46→12:40)
[2024-05-16 07:08] LABS: Bedside Glucose 187 mg/dL (74-106)
[2024-05-16 07:15] LABS: Absolute Lymphocyte Count 0.35 X10^3/uL (0.83-4.51); Absolute Neutrophil Count 6.2 X10^3/uL (2.0-7.7); Basophil# 0.02 X10^3/uL; Basophil% 0.3 % (0-1); Eosinophil# 0.01 X10^3/uL; Eosinophils% 0.1 % (0-5); Hemoglobin 9.9 g/dL (12.0-15.0); Lymphocyte # 0.35 X10^3/ul (0.83-4.51); Lymphocyte % 4.9 % (19-41); Mean Corp Hgb Conc 34.1 g/dL (32-36); Mean Corpuscular Volume 90.9 fL (81-99); Mean Platelet Vol. 12.2 fl (6.2-12.0); Monocyte# 0.56 X10^3/uL; Monocyte% 7.9 % (0-10); NRBC Flagged by Analyzer 0 % (0-5); Neutrophil # 6.15 X10^3/uL (2.7-7.7); Neutrophil % 86.2 % (47-70); POSITIVE DIFFERENTIAL YES; Platelet Count 116 K/mm3 (150-450); RBC Distribution Width CV 13.2 % (11.6-14.6); RBC Distribution Width SD 44.3 fl (35.1-43.9); Red Blood Count 3.19 M/mm3 (4.2-5.4); White Blood Count 7.1 K/mm3 (4.4-11.0)
[2024-05-16 08:12] LABS: Anion Gap 16 (5-15); BUN 50 mg/dL (4-19); BUN/Creat Ratio 24.5 RATIO (10-20); Calcium,Total 9.1 mg/dL (7.6-11.0); Carbon Dioxide 17.4 mmol/L (21.0-32.0); Chloride 101 mmol/L (98-108); Creatinine, Serum 2.03 mg/dL (0.70-1.20); EST Glomerular Filtration Rate 26 (>60); Estimated Creatinine Clearance 28.52 ml/min (50-250); Glucose 177 mg/dL (70-99); Potassium 4.6 mmol/L (3.3-5.1); Sodium Level 134 mmol/L (133-145)
--- NOTE | 2024-05-16 08:28 | PN.HOSP_ITS ---
Reason for Visit Reason for Visit: Diagnoses Dizziness and giddiness (05/14/24) Fracture of unspecified part of neck of right femur, initial encounter for closed fracture (05/14/24) Unspecified fall, initial encounter (05/14/24) Subjective Subjective Groggy, confused and hallucinating this AM. Objective Data Objective Data Vital Signs: Vital Signs Temp Pulse Resp BP Pulse Ox O2 Del Method O2 Flow Rate 36.8 C 83 14 126/51 H 95 Nasal Cannula 3 05/16/24 07:35 05/16/24 07:35 05/16/24 07:35 05/16/24 07:35 05/16/24 07:35 05/16/24 08:01 05/16/24 08:01 Oxygen Flow Rate (L/min) 3 Oxygen Delivery Method Nasal Cannula Weight: 80.3 kg Body Mass Index (BMI) 27.8 Intake & Output: Intake and Output for Last 24 Hours 05/14/24 05/15/24 05/16/24 23:59 23:59 23:59 Intake Total 340 / 840 700 / 700 Output Total 600 / 600 1100 / 1450 600 / 600 Balance -600 / -600 -760 / -610 100 / 100 Lab / Micro Data 05/16/24 06:35 05/16/24 06:35 Labs: Laboratory Results - last 24 hr 05/15/24 05:44: Vitamin D 25-Hydroxy 43.9 05/15/24 14:08: WBC 6.9, RBC 3.48 L, Hgb 10.6 L, Hct 32.2 L, MCV 92.5, MCH 30.5, MCHC 32.9, RDW Std Deviation 46.2 H, RDW Coeff of Juanito 13.5, Plt Count 138 L, MPV 11.7 05/15/24 15:56: POC Glucose 219 H 05/15/24 20:58: POC Glucose 319 H 05/16/24 06:35: WBC 7.1, RBC 3.19 L, Hgb 9.9 L, Hct 29.0 L, MCV 90.9, MCH 31.0, MCHC 34.1, RDW Std Deviation 44.3 H, RDW Coeff of Juanito 13.2, Plt Count 116 L, MPV 12.2 H, Immature Gran % (Auto) 0.600, Neut % (Auto) 86.2 H, Lymph % (Auto) 4.9 L , [place] % (Auto) 7.9, Eos % (Auto) 0.1, Baso % (Auto) 0.3, Absolute Neuts (auto) 6.2, Absolute Lymphs (auto) 0.35 L, Nucleated RBC % 0, Sodium 134, Potassium 4.6, Chloride 101, Carbon Dioxide 17.4 L, Anion Gap 16 H, BUN 50 H, Creatinine 2.03 H, Estim Creat Clear Calc 28.52 L, Est GFR (MDRD) Non-Af 26 L, B UN/Creatinine Ratio 24.5 H, Glucose 177 H, Calcium 9.1 05/16/24 06:46: POC Glucose 187 H ABG Data ABG results: ABG 05/15/24 13:24 Specimen Type ART Sample Site Art Line pH 7.35 Bicarbonate Actual 23.2 Total CO2 25 Base Excess -2 O2 Saturation 99 O2 % 50.0 ABG pCO2 42.1 ABG pO2 158 H O2 Delivery Device Not entered Vent Mode Not entered Radiography Diagnostic Testing: Radiology Impression Hip X-Ray 05/15/24 14:55 IMPRESSION: Status post right total hip replacement. There is good alignment. Postoperative soft tissue changes. Reading Location: [place] [id number] Physical Exam Const no apparent distress Orientation / Consciousness: confused HEENT head/scalp atraumatic and moist oral mucous membranes Eyes Eyes Narrative: narrow, but reactive pupils. Resp normal respiratory effort, no retractions, no use of accessory muscles and clear to auscultation bilaterally Cardio regular rate, regular rhythm, S1 normal heart sound and S2 normal heart sound Neuro Sensorium / Orientation: awake and alert Assessment & Plan Assessment/Plan (1) Closed right hip fracture: PLAN: s/p mechanical fall. Right intertrochanteric fracture Left hip cemented dylan arthroplasty on 05/17 25 OH-d level 43.9,continue weekly ergocalciferol. (2) Encephalopathy acute: PLAN: likely toxic given medications. DC'd hydromorphone, tizanidine, oxycodone PLAN: Plan Debility: post surgery. PT OT eval and treat. Anticipate patient will require SNF when stable for discharge Chronic conditions: * HTN: continue amlodipine, isosorbide, losartan * Depression: venlafaxine * CKD IV. stable monitor. VTE prophylaxis: SCDs. DW patient's . Charges/Coding Visit Charges Inpatient E&M: 87060 Subs Hosp L2
--- NOTE | 2024-05-16 10:03 | CASEMGMT ---
Discharge Planning A list of SNF providers including quality and resource use data and consistent with the patient's preferred geographic region, medical needs, and insurance network was created in [facility] Guide.? This list was provided to the SW. Leslee Mesa Discharge Planning Asst.
[2024-05-16] MEDS: Cefazolin 2 GM in Syringe IV ×2 (10:32→17:17)
[2024-05-16 11:05] LABS: Bedside Glucose 228 mg/dL (74-106)
[2024-05-16 12:59] LABS: Bedside Glucose 205 mg/dL (74-106)
--- NOTE | 2024-05-16 14:46 | CASEMGMT ---
Social Work- A list of SNF providers including quality and resource use data and consistent with the patient?s preferred geographic region, medical needs, and insurance network were provided from the [employer] Guide. Pt and pt spouse will look over the list and choose three facilities for referrals. SW to follow up for selections. Pt and spouse discussed pt's multiple health issues and involvement with rehab. Pt reports that she has had [facility] and has been receiving therapy from [facility]. Pt recently was going to [facility] for therapy as well. [place] and had been working towards a goal of being able to get into the swimming pool this summer. Pt spouse is supportive and reports that his sister is very supportive of pt as well. SW remains available to follow. WILL Wagner
--- NOTE | 2024-05-16 16:24 | NURSING ---
All documentation by certified nursing assistant Karissa Harris reviewed by skilled nursing case manager Joanna DAVISN, RN.
[2024-05-16 16:56] LABS: Bedside Glucose 130 mg/dL (74-106)
[2024-05-16] MEDS: Rivaroxaban 10 MG Tablet PO (17:15)
[2024-05-16] MEDS: Ferrous Gluconate 324 MG Tablet PO (17:15)
[2024-05-16] MEDS: Pantoprazole Sodium 40 MG Tablet PO (21:28)
[2024-05-16] MEDS: Gemfibrozil 600 MG Tablet PO (21:28)
[2024-05-16] MEDS: Venlafaxine HCl 75 MG Tablet 37.5 MG PO (21:28)
[2024-05-16] MEDS: Doxazosin 1 MG Tablet 2 MG PO (21:28)
[2024-05-17] VITALS (7 sets, daily range): BP systolic 103–150; BP diastolic 47–70; PULSE 81–94; RESP 16–18; TEMP 36.5–37.3; O2SAT 91–96; BMI 26.4
[2024-05-17] MEDS: 0.9% Saline Lock 10 ML Syringe IV ×3 (02:41→22:00)
[2024-05-17] MEDS: Cefazolin 2 GM in Syringe IV ×2 (02:41→10:10)
[2024-05-17] MEDS: Acetaminophen 500 MG Tablet 1000 MG PO ×3 (05:30→22:02)
[2024-05-17] MEDS: Mineral Oil/Petrolatum Cr 1.75oz Bottle 1 APPLIC TOPICAL (06:46)
[2024-05-17 06:49] LABS: Absolute Lymphocyte Count 0.36 X10^3/uL (0.83-4.51); Absolute Neutrophil Count 4.8 X10^3/uL (2.0-7.7); Basophil# 0.02 X10^3/uL; Basophil% 0.3 % (0-1); Eosinophil# 0.15 X10^3/uL; Eosinophils% 2.5 % (0-5); Hemoglobin 9.8 g/dL (12.0-15.0); Lymphocyte # 0.36 X10^3/ul (0.83-4.51); Lymphocyte % 6.1 % (19-41); Mean Corp Hgb Conc 32.7 g/dL (32-36); Mean Corpuscular Volume 91.7 fL (81-99); Mean Platelet Vol. 11.8 fl (6.2-12.0); Monocyte# 0.58 X10^3/uL; Monocyte% 9.8 % (0-10); NRBC Flagged by Analyzer 0 % (0-5); Neutrophil # 4.76 X10^3/uL (2.7-7.7); Neutrophil % 80.8 % (47-70); POSITIVE DIFFERENTIAL YES; Platelet Count 107 K/mm3 (150-450); RBC Distribution Width CV 13.3 % (11.6-14.6); RBC Distribution Width SD 44.4 fl (35.1-43.9); Red Blood Count 3.27 M/mm3 (4.2-5.4); White Blood Count 5.9 K/mm3 (4.4-11.0)
[2024-05-17] MEDS: Insulin Lispro 100 UNIT/ML INSULN.PEN SC ×3 (06:49→16:13)
[2024-05-17 07:08] LABS: Bedside Glucose 196 mg/dL (74-106)
--- NOTE | 2024-05-17 07:21 | PN.HOSP_ITS ---
Reason for Visit Reason for Visit: Diagnoses Encephalopathy, unspecified (05/14/24) Dizziness and giddiness (05/14/24) Fracture of unspecified part of neck of right femur, initial encounter for closed fracture (05/14/24) Unspecified fall, initial encounter (05/14/24) Subjective Subjective Right hip pain. Objective Data Objective Data Vital Signs: Vital Signs Temp Pulse Resp BP Pulse Ox O2 Del Method O2 Flow Rate 36.9 C 91 18 150/70 H 94 Nasal Cannula 3 05/17/24 02:35 05/17/24 02:35 05/17/24 02:35 05/17/24 02:35 05/17/24 02:35 05/17/24 02:35 05/17/24 02:35 Oxygen Flow Rate (L/min) 3 Oxygen Delivery Method Nasal Cannula Weight: 76.3 kg Body Mass Index (BMI) 26.4 Intake & Output: Intake and Output for Last 24 Hours 05/15/24 05/16/24 05/17/24 23:59 23:59 23:59 Intake Total 340 / 840 1196 / 1196 620 / 620 Output Total 1100 / 1450 1150 / 1150 1150 / 1150 Balance -760 / -610 46 / 46 -530 / -530 Lab / Micro Data 05/17/24 06:24 05/17/24 06:24 Labs: Laboratory Results - last 24 hr 05/16/24 06:35: WBC 7.1, RBC 3.19 L, Hgb 9.9 L, Hct 29.0 L, MCV 90.9, MCH 31.0, MCHC 34.1, RDW Std Deviation 44.3 H, RDW Coeff of Juanito 13.2, Plt Count 116 L, MPV 12.2 H, Immature Gran % (Auto) 0.600, Neut % (Auto) 86.2 H, Lymph % (Auto) 4.9 L , [place] % (Auto) 7.9, Eos % (Auto) 0.1, Baso % (Auto) 0.3, Absolute Neuts (auto) 6.2, Absolute Lymphs (auto) 0.35 L, Nucleated RBC % 0, Sodium 134, Potassium 4.6, Chloride 101, Carbon Dioxide 17.4 L, Anion Gap 16 H, BUN 50 H, Creatinine 2.03 H, Estim Creat Clear Calc 28.52 L, Est GFR (MDRD) Non-Af 26 L, B UN/Creatinine Ratio 24.5 H, Glucose 177 H, Calcium 9.1 05/16/24 10:47: POC Glucose 228 H 05/16/24 12:39: POC Glucose 205 H 05/16/24 16:36: POC Glucose 130 H 05/17/24 06:24: WBC 5.9, RBC 3.27 L, Hgb 9.8 L, Hct 30.0 L, MCV 91.7, MCH 30.0, MCHC 32.7, RDW Std Deviation 44.4 H, RDW Coeff of Jaunito 13.3, Plt Count 107 L, MPV 11.8, Immature Gran % (Auto) 0.500, Neut % (Auto) 80.8 H, Lymph % (Auto) 6.1 L, [place] % (Auto) 9.8, Eos % (Auto) 2.5, Baso % (Auto) 0.3, Absolute Neuts (auto) 4.8, Absolute Lymphs (auto) 0.36 L, Nucleated RBC % 0 05/17/24 06:48: POC Glucose 196 H Physical Exam Const Constitutional Narrative: confused, follow commands. date is November. Knows she is in [place]. HEENT head/scalp atraumatic and moist oral mucous membranes Eyes PERRL and conjunctivae normal Resp normal respiratory effort, no retractions, no use of accessory muscles and clear to auscultation bilaterally Cardio regular rhythm Cardio Narrative: 2/6 ASHLEIGH GI normal to inspection, nondistended, normoactive bowel sounds, soft to palpation, non-tender and non-distended Extremity Extremity Narrative: dressing intact--did not remove. Assessment & Plan Assessment/Plan (1) Closed right hip fracture: PLAN: s/p mechanical fall. Right intertrochanteric fracture Left hip cemented dylan arthroplasty on 05/17 25 OH-d level 43.9,continue weekly ergocalciferol. (2) Encephalopathy acute: PLAN: Toxic. Improved after holding hydromorphone, tizanidine, oxycodone PLAN: Plan Debility: post surgery. PT OT eval and treat. Anticipate patient will require SNF when stable for discharge Chronic conditions: * HTN: continue amlodipine, isosorbide, losartan * Depression: venlafaxine * CKD IV. stable monitor. VTE prophylaxis: SCDs. Disposition: eventually to SNF. Charges/Coding Visit Charges Inpatient E&M: 24427 Subs Hosp L2
[2024-05-17 09:11] LABS: Anion Gap 15 (5-15); BUN 50 mg/dL (4-19); BUN/Creat Ratio 26.5 RATIO (10-20); Calcium,Total 8.9 mg/dL (7.6-11.0); Carbon Dioxide 18.7 mmol/L (21.0-32.0); Chloride 103 mmol/L (98-108); EST Glomerular Filtration Rate 28 (>60); Estimated Creatinine Clearance 29.77 ml/min (50-250); Glucose 189 mg/dL (70-99); Potassium 4.3 mmol/L (3.3-5.1); Sodium Level 136 mmol/L (133-145)
[2024-05-17] MEDS: Aspirin E.C. 81 MG Tablet PO (09:34)
[2024-05-17] MEDS: Ferrous Gluconate 324 MG Tablet PO ×2 (09:34→17:48)
[2024-05-17] MEDS: Cyanocobalamin 500 MCG Tablet PO (09:35)
[2024-05-17] MEDS: Multivitamins,Therapeutic Tablet 1 TABLET PO (09:35)
[2024-05-17] MEDS: Spironolactone 25 MG Tablet PO (09:36)
[2024-05-17] MEDS: Doxazosin 1 MG Tablet 2 MG PO ×2 (09:37→22:03)
[2024-05-17] MEDS: Colestipol 1 GM TABLET PO (09:38)
[2024-05-17] MEDS: Losartan Potassium 25 MG Tablet PO (09:39)
[2024-05-17] MEDS: Venlafaxine HCl 75 MG Tablet 37.5 MG PO ×2 (09:40→22:02)
[2024-05-17] MEDS: Isosorbide Mononitrate 60 MG Tablet PO (09:41)
[2024-05-17] MEDS: Furosemide 40 MG Tablet PO (09:42)
[2024-05-17] MEDS: amLODIPine 5 MG Tablet PO (09:43)
[2024-05-17] MEDS: Pantoprazole Sodium 40 MG Tablet PO ×2 (09:43→22:02)
[2024-05-17] MEDS: Gemfibrozil 600 MG Tablet PO ×2 (09:43→22:02)
[2024-05-17 11:40] LABS: Bedside Glucose 319 mg/dL (74-106)
--- NOTE | 2024-05-17 12:22 | CASEMGMT ---
Social Work- SW met with pt to follow up on SNF choices. [facility]. [facility], [facility], and [facility] are alternate choices. SW notified DCA of referral requests. SW completed referral to [facility]. JOSSIE remains available to follow. WILL Wagner
--- NOTE | 2024-05-17 14:50 | PN.ORTHO_ITS ---
Subjective Subjective Patient having some mild right hip pain. Laying in bed. Postoperative day 2 right hip hemiarthroplasty. Objective Data Objective Data Vital Signs: Vital Signs Temp Pulse Resp BP Pulse Ox O2 Del Method O2 Flow Rate 98.1 F 90 18 103/53 L 91 Nasal Cannula 3 05/17/24 14:04 05/17/24 14:04 05/17/24 14:04 05/17/24 14:04 05/17/24 14:04 05/17/24 14:04 05/17/24 08:40 Oxygen Flow Rate (L/min) 3 Oxygen Delivery Method Nasal Cannula Weight: 168 lb 3.403 oz Body Mass Index (BMI) 26.4 Intake & Output: Intake and Output for Last 24 Hours 05/15/24 05/16/24 05/17/24 23:59 23:59 23:59 Intake Total 340 / 840 1196 / 1196 640 / 640 Output Total 1100 / 1450 1150 / 1150 1455 / 1455 Balance -760 / -610 46 / 46 -815 / -815 Lab / Micro Data 05/17/24 06:24 05/17/24 06:24 Labs: Laboratory Results - last 24 hr 05/16/24 16:36: POC Glucose 130 H 05/17/24 06:24: WBC 5.9, RBC 3.27 L, Hgb 9.8 L, Hct 30.0 L, MCV 91.7, MCH 30.0, MCHC 32.7, RDW Std Deviation 44.4 H, RDW Coeff of Juanito 13.3, Plt Count 107 L, MPV 11.8, Immature Gran % (Auto) 0.500, Neut % (Auto) 80.8 H, Lymph % (Auto) 6.1 L, [place] % (Auto) 9.8, Eos % (Auto) 2.5, Baso % (Auto) 0.3, Absolute Neuts (auto) 4.8, Absolute Lymphs (auto) 0.36 L, Nucleated RBC % 0, Sodium 136, Potassium 4.3, Chloride 103, Carbon Dioxide 18.7 L, Anion Gap 15, BUN 50 H, Creatinine 1.90 H, Estim Creat Clear Calc 29.77 L, Est GFR (MDRD) Non-Af 28 L, B UN/Creatinine Ratio 26.5 H, Glucose 189 H, Calcium 8.9 05/17/24 06:48: POC Glucose 196 H 05/17/24 11:22: POC Glucose 319 H Physical Exam Const alert and oriented x3 General Appearance: cooperative Extremity Extremity Narrative: Dressing dry thigh soft wiggles the toes normal sensation throughout the foot foot warm well-perfused. Lying in bed slightly uncomfortable appearing Assessment & Plan Assessment/Plan (1) Closed right hip fracture: PLAN: 68-year-old female postop day 2 right hip hemiarthroplasty. Patient is doing well pain settling down continue mobilizing continue current management.
[2024-05-17] MEDS: Senna/Docusate Sodium 1 Tablet 2 TABLET PO (15:48)
--- NOTE | 2024-05-17 16:07 | CASEMGMT ---
Addendum entered by Leslee Mesa 05/18/24 12:04: [facility] declined d/t no bed availability. Updated [facility] that they are foc and that pt should discharge today. Leslee Mesa DC Planning Asst. Addendum entered by Leslee Mesa 05/17/24 16:32: Msg rec'd from [facility] that they do have bed availability. SW updated. Leslee Mesa DC Planning Asst. Addendum entered by Leslee Mesa 05/17/24 16:16: [facility] declined d/t no bed availability. SW updated. Leslee Mesa DC Planning Asst. Original Note: Discharge Planning Referral sent to [facility] [place] and [facility]. Leslee Mesa DC Planning Asst.
[2024-05-17 16:14] LABS: Bedside Glucose 205 mg/dL (74-106)
[2024-05-17] MEDS: Rivaroxaban 10 MG Tablet PO (17:48)
[2024-05-17 22:27] LABS: Bedside Glucose 191 mg/dL (74-106)
[2024-05-18] VITALS (8 sets, daily range): BP systolic 116–147; BP diastolic 48–61; PULSE 81–91; RESP 16–18; TEMP 36.7–36.9; O2SAT 88–97; BMI 26.5
[2024-05-18] MEDS: Acetaminophen 500 MG Tablet 1000 MG PO ×2 (05:04→14:02)
[2024-05-18] MEDS: Senna/Docusate Sodium 1 Tablet 2 TABLET PO (05:04)
[2024-05-18] MEDS: Insulin Lispro 100 UNIT/ML INSULN.PEN SC ×3 (06:28→16:40)
[2024-05-18 07:03] LABS: Bedside Glucose 208 mg/dL (74-106)
--- NOTE | 2024-05-18 07:46 | PCM.PN.HOSP ---
Reason for Visit Reason for Visit: Diagnoses Encephalopathy, unspecified (05/14/24) Dizziness and giddiness (05/14/24) Fracture of unspecified part of neck of right femur, initial encounter for closed fracture (05/14/24) Unspecified fall, initial encounter (05/14/24) Subjective Subjective No events. Objective Data Objective Data Vital Signs: Vital Signs Temp Pulse Resp BP Pulse Ox O2 Del Method O2 Flow Rate 36.9 C 85 16 135/53 H 94 Nasal Cannula 2 05/18/24 04:35 05/18/24 04:35 05/18/24 04:35 05/18/24 04:35 05/18/24 06:26 05/18/24 06:26 05/18/24 06:26 Oxygen Flow Rate (L/min) 2 Oxygen Delivery Method Nasal Cannula Weight: 76.8 kg Body Mass Index (BMI) 26.5 Intake & Output: Intake and Output for Last 24 Hours 05/16/24 05/17/24 05/18/24 23:59 23:59 23:59 Intake Total 1196 / 1196 640 / 640 Output Total 1150 / 1150 1655 / 1655 300 / 300 Balance 46 / 46 -1015 / -1015 -300 / -300 Lab / Micro Data 05/17/24 06:24 05/17/24 06:24 Labs: Laboratory Results - last 24 hr 05/17/24 06:24: Sodium 136, Potassium 4.3, Chloride 103, Carbon Dioxide 18.7 L, Anion Gap 15, BUN 50 H, Creatinine 1.90 H, Estim Creat Clear Calc 29.77 L, Est GFR (MDRD) Non-Af 28 L, BUN/Creatinine Ratio 26.5 H, Glucose 189 H, Calcium 8.9 05/17/24 11:22: POC Glucose 319 H 05/17/24 15:56: POC Glucose 205 H 05/17/24 22:09: POC Glucose 191 H 05/18/24 06:27: POC Glucose 208 H Physical Exam Const Constitutional Narrative: on commode. non-toxic. Assessment & Plan Assessment/Plan (1) Closed right hip fracture: PLAN: s/p mechanical fall. Right intertrochanteric fracture Left hip cemented dylan arthroplasty on 05/17 25 OH-d level 43.9,continue weekly ergocalciferol. (2) Encephalopathy acute: PLAN: Toxic. Improved after holding hydromorphone, tizanidine, oxycodone atrophy noted on CT. Cannot rule out MCI/dementia. Recommend outpt evaluation if concern remains after discharge. PLAN: Plan Debility: post surgery. PT OT eval and treat. Anticipate patient will require SNF when stable for discharge Chronic conditions: HTN: continue amlodipine, isosorbide, losartan Depression: venlafaxine CKD IV. stable monitor. VTE prophylaxis: SCDs. Disposition: to [facility].
[2024-05-18] MEDS: Gemfibrozil 600 MG Tablet PO (09:29)
[2024-05-18] MEDS: Ferrous Gluconate 324 MG Tablet PO ×2 (09:29→16:40)
[2024-05-18] MEDS: Multivitamins,Therapeutic Tablet 1 TABLET PO (09:29)
[2024-05-18] MEDS: Colestipol 1 GM TABLET PO (09:29)
[2024-05-18] MEDS: Isosorbide Mononitrate 60 MG Tablet PO (09:29)
[2024-05-18] MEDS: Cyanocobalamin 500 MCG Tablet PO (09:29)
[2024-05-18] MEDS: Venlafaxine HCl 75 MG Tablet 37.5 MG PO (09:29)
[2024-05-18] MEDS: Pantoprazole Sodium 40 MG Tablet PO (09:29)
[2024-05-18] MEDS: Aspirin E.C. 81 MG Tablet PO (09:29)
[2024-05-18] MEDS: Losartan Potassium 25 MG Tablet PO (11:10)
[2024-05-18] MEDS: Spironolactone 25 MG Tablet PO (11:10)
[2024-05-18] MEDS: amLODIPine 5 MG Tablet PO (11:10)
[2024-05-18] MEDS: Doxazosin 1 MG Tablet 2 MG PO (11:10)
[2024-05-18] MEDS: Furosemide 40 MG Tablet PO (11:10)
[2024-05-18 11:49] LABS: Bedside Glucose 274 mg/dL (74-106)
--- NOTE | 2024-05-18 12:37 | PCM.TXEXTCAR ---
Diet Diet Order/Speech Therapy: 05/16/24 17:05 Carb [Diet: Carbohydrate Controlled] Routine Orders/Code Status Code Status: Full Code DC O2, CPAP, BIPAP needs Home O2 Discharge instructions: No Wound(s) RIGHT HIP, LATERAL: Wound Type: Surgical Incision right harmon: Wound Type: Laceration Therapies Physical Therapy: Eval and Treat Occupational Therapy: Eval and Treat Problem/Diagnosis (1) Closed right hip fracture: Status: Acute Code(s): S72.001A - Fracture of unspecified part of neck of right femur, initial encounter for closed fracture Plan: s/p mechanical fall. Right intertrochanteric fracture Left hip cemented dylan arthroplasty on 05/17 25 OH-d level 43.9,continue weekly ergocalciferol. (2) Encephalopathy acute: Status: Acute Code(s): G93.40 - Encephalopathy, unspecified Plan: Toxic. Improved after holding hydromorphone, tizanidine, oxycodone atrophy noted on CT. Cannot rule out MCI/dementia. Recommend outpt evaluation if concern remains after discharge. Plan Debility: post surgery. PT OT eval and treat. Anticipate patient will require SNF when stable for discharge Chronic conditions: HTN: continue amlodipine, isosorbide, losartan Depression: venlafaxine CKD IV. stable monitor. VTE prophylaxis: SCDs. Disposition: to [facility]. Allergies/Procedures Done in Hospital Allergies diltiazem Allergy (Intermediate, Verified 05/14/24 12:04) RASH grass pollen Allergy (Intermediate, Verified 05/14/24 12:04) Itching hydralazine Allergy (Intermediate, Verified 05/14/24 12:04) Other INDUCES LUPUS metoprolol (From Toprol XL) Allergy (Intermediate, Verified 05/14/24 12:04) Itching mold Allergy (Intermediate, Verified 05/14/24 12:04) Hives tomato Allergy (Intermediate, Verified 05/14/24 12:04) Itching vancomycin Allergy (Intermediate, Verified 05/14/24 12:04) Hives strawberry (strawberries) Allergy (Verified 05/14/24 12:04) Itching NSAIDS (Non-Steroidal Anti-Inflamma Adverse Reaction (Mild, Verified 05/14/24 12:04) Other ON BLOOD THINNERS pravastatin (From Pravachol) Adverse Reaction (Mild, Verified 05/14/24 12:04) Hives LEG CRAMPS bupropion (From Wellbutrin) Adverse Reaction (Verified 05/14/24 12:04) PASSES OUT Procedures: None Type of Care/Length of Stay Estimated LOS: Convalescent Care Less Than 30 days Type of Care Needed: Skilled Rehab Potential: Good Prognosis: Good Additional Orders/Day of Discharge Day of Discharge: 05/18/24 Dietary and Speech Recommendations Dietitian Recommendations/Changes: Advance diet as tolerated to 1800CCD/Cardiac diet when medically able to manage medical conditions. Discharge Plan Admission Admit Date/Time: 05/14/24 15:08 Primary Reason for Your Visit: Right hip fracture. Attending Provider: Tadeo Tristan Primary Care Provider: Max Alvarenga Consulting Providers: Lam Velasco; Kavita Johnson Discharge Orders/Prescriptions Prescriptions: New acetaminophen 500 mg Tablet 1,000 mg PO Q8 Qty: 0 0RF fluticasone propionate 50 mcg/actuation [place],Suspension 1 spray NASAL QHS Qty: 0 0RF Xarelto 10 mg Tablet 10 mg PO DINNER Qty: 0 0RF Continued amlodipine 5 mg tablet 5 mg PO DAILY aspirin [Adult Aspirin Regimen] 81 mg tablet,delayed release (DR/EC) 81 mg PO DAILY colesevelam 625 mg tablet 1,875 mg PO QHS cyanocobalamin (vitamin B-12) 500 mcg tablet 500 mcg PO DAILY doxazosin 2 mg tablet 2 mg PO BID ergocalciferol (vitamin D2) 1,250 mcg (50,000 unit) capsule 1,250 mcg PO CURRAN gemfibrozil 600 mg tablet 600 mg PO BID isosorbide mononitrate 60 mg tablet extended release 24 hr 60 mg PO DAILY lactulose 10 gram/15 mL solution 30 ml PO TID PRN (Reason: constipation) losartan 25 mg tablet 25 mg PO DAILY Mag Glycinate 100 mg tablet 200 mg PO DAILY multivitamin [Daily Multi-Vitamin] Tablet 1 tab PO DAILY pantoprazole 40 mg tablet,delayed release (DR/EC) 40 mg PO BID Januvia 50 mg tablet 50 mg PO DAILY spironolactone 25 mg tablet 25 mg PO DAILY torsemide 20 mg tablet 20 mg PO DAILY Trelegy Ellipta 100-62.5-25 mcg blister with device 1 ea INHALATION DAILY triamcinolone acetonide 55 mcg aerosol,spray 2 spray INTRANASAL DAILY trospium 20 mg tablet 20 mg PO BID venlafaxine 37.5 mg tablet 37.5 mg PO BID Proair Digihaler 90 mcg/actuation aero powdr breath act w/sensor 2 inh inhalation Q4H PRN (Reason: shortness of breath) ammonium lactate 12 % lotion 1 applic topical DAILY PRN (Reason: dry skin) coenzyme Q10 [Co Q-10] 100 mg capsule 100 mg PO BID ferrous gluconate 324 mg (37.5 mg iron) tablet 324 mg PO BID Referrals / Follow Up: Max Alvarenga MD [Primary Care Provider] - Within 2 Weeks Lam Velasco MD [Med Staff - Active Staff] - Within 2 Weeks Disposition Disposition (needs filled in before D/C Order can be placed): [facility]
--- NOTE | 2024-05-18 12:42 | DS.PCM_ITS ---
Providers Date of Admission: 05/14/24 Primary Care Physician: Dr. Max Alvarenga MD Consultations 05/14/24 17:46 Consult: Orthopedics Routine Consulting Provider: Lam Velasco Reason for Consult: R hip fracture EMERGENT Consult: No MD Notified: Yes Date Notified: 05/14/24 Time Notified: 16:12 Method of Notification: Verbal Reason For Visit: RIGHT HIP FRACTURE Diagnosis Discharge Diagnosis (1) Closed right hip fracture: Status: Acute Code(s): S72.001A - Fracture of unspecified part of neck of right femur, initial encounter for closed fracture Plan: s/p mechanical fall. Right intertrochanteric fracture right (not left, correction from prior notes) hip cemented dylan arthroplasty on 05/17 25 [place]-d level 43.9,continue weekly ergocalciferol. (2) Encephalopathy acute: Status: Acute Code(s): G93.40 - Encephalopathy, unspecified Plan: Toxic. Improved after holding hydromorphone, tizanidine, oxycodone atrophy noted on CT. Cannot rule out MCI/dementia. Recommend outpt evaluation if concern remains after discharge. Plan Debility: post surgery. PT OT eval and treat. Anticipate patient will require SNF when stable for discharge Chronic conditions: * HTN: continue amlodipine, isosorbide, losartan * Depression: venlafaxine * CKD IV. stable monitor. VTE prophylaxis: SCDs. Disposition: to [facility]. Medications at Discharge Home Medications albuterol sulfate 90 mcg/actuation breath activated powder inhaler,sensor (Proair Digihaler) 2 inh inhalation Q4H PRN shortness of breath 05/14/24 amlodipine 5 mg tablet 5 mg PO DAILY BLOOD PRESSURE 05/14/24 ammonium lactate 12 % lotion 1 applic topical DAILY PRN dry skin 05/14/24 aspirin 81 mg tablet,delayed release (Adult Aspirin Regimen) 81 mg PO DAILY PAIN 05/14/24 coenzyme Q10 100 mg capsule (Co Q-10) 100 mg PO BID SUPPLEMENT 05/14/24 colesevelam 625 mg tablet 1,875 mg PO QHS CHOLESTROL 05/14/24 cyanocobalamin (vitamin B-12) 500 mcg tablet 500 mcg PO DAILY SUPPLEMENT 05/14/24 doxazosin 2 mg tablet 2 mg PO BID BLOOD PRESSURE 05/14/24 ergocalciferol (vitamin D2) 1,250 mcg (50,000 unit) capsule 1,250 mcg PO CURRAN SUPPLEMENT 05/14/24 fluticasone fur. 100 mcg-umeclid 62.5 mcg-vilant 25 mcg inhalat.powder (Trelegy Ellipta) 1 ea inhalation DAILY ASTHMA 05/14/24 gemfibrozil 600 mg tablet 600 mg PO BID CHOLESTROL 05/14/24 isosorbide mononitrate 60 mg tablet,extended release 24 hr 60 mg PO DAILY ANGINA 05/14/24 lactulose 10 gram/15 mL oral solution 30 ml PO TID PRN constipation 05/14/24 losartan 25 mg tablet 25 mg PO DAILY BLOOD PRESSURE 05/14/24 magnesium glycinate 100 mg (as glycinate) tablet (Mag Glycinate) 200 mg PO DAILY SUPPLEMENT 05/14/24 multivitamin (Daily Multi-Vitamin tablet) 1 tab PO DAILY SUPPLEMENT 05/14/24 pantoprazole 40 mg tablet,delayed release 40 mg PO BID STOMACH ACID 05/14/24 sitagliptin phosphate 50 mg tablet (Januvia) 50 mg PO DAILY DIABETES 05/14/24 spironolactone 25 mg tablet 25 mg PO DAILY WATER PILL 05/14/24 torsemide 20 mg tablet 20 mg PO DAILY BLOOD PRESSURE 05/14/24 triamcinolone acetonide 55 mcg nasal spray aerosol 2 spray intranasal DAILY ALLERGIES 05/14/24 trospium 20 mg tablet 20 mg PO BID OVERRACTIVE BLADDER 05/14/24 venlafaxine 37.5 mg tablet 37.5 mg PO BID DEPRESSION 05/14/24 ferrous gluconate 324 mg (37.5 mg iron) tablet 324 mg PO BID IRON DEFICIENCY 05/15/24 acetaminophen 500 mg tablet 1,000 mg (2 x 500 mg) PO Q8 #0 tabs 05/18/24 fluticasone propionate 50 mcg/actuation nasal spray,suspension 1 spray NASAL QHS #0 grams 05/18/24 rivaroxaban 10 mg tablet (Xarelto) 10 mg PO DINNER #0 tabs 05/18/24 Hospital Course Operations - (right hip hemiarthroplasty. ) Procedures None Summary of Care Provided Minutes Spent on Discharge: 28 Hospital Course: Patient had a fall and had a right hip fracture. Patient underwent a right hip hemiarthroplasty. Patient developed confusion and encephalopathy due to medications. Her narcotics were discontinued and the patient's mental status improved. [facility] condition. Weight / BMI Weight Weight: 76.8 kg Body Mass Index (BMI) 26.5 ABG / Lab / Microbiology Data 05/17/24 06:24 05/17/24 06:24 Laboratory: Laboratory Results - last 24 hr 05/17/24 15:56: POC Glucose 205 H 05/17/24 22:09: POC Glucose 191 H 05/18/24 06:27: POC Glucose 208 H 05/18/24 11:14: POC Glucose 274 H D/C Instructions DC O2, CPAP, BIPAP Needs Home O2 Discharge instructions: No Meaningful Use Info Meaningful Use Meaningful Use Diagnoses (Choose all that apply): None applicable Ischemic Stroke Statin Dosing Therapy Reference: STATIN DOSE THERAPY REFERENCE: * Patients > 75 years receive moderate or high dose statin therapy. * Patients 75 years or YOUNGER should receive HIGH intensity statin dose unless contraindicated. You will be required to document reason for non-treatment if statin daily dose does not meet guidelines. HIGH DOSE STATIN THERAPY DAILY Atorvastatin > than or = to 40 mg Rosuvastatin > than or = to 20 mg Amlodipine + Atorvastatin > than or = to 2.5/40 mg Ezetimibe + Simvastatin 10/80 mg Simvastatin 80mg Discharge Plan Admission Admit Date/Time: 05/14/24 15:08 Primary Reason for Your Visit: Right hip fracture. Attending Provider: Tadeo Tristan Primary Care Provider: Max Alvarenga Consulting Providers: Lam Velasco; Kavita Johnson Discharge Orders/Prescriptions Prescriptions: New acetaminophen 500 mg Tablet 1,000 mg PO Q8 Qty: 0 0RF fluticasone propionate 50 mcg/actuation [place],Suspension 1 spray NASAL QHS Qty: 0 0RF Xarelto 10 mg Tablet 10 mg PO DINNER Qty: 0 0RF Continued amlodipine 5 mg tablet 5 mg PO DAILY aspirin [Adult Aspirin Regimen] 81 mg tablet,delayed release (DR/EC) 81 mg PO DAILY colesevelam 625 mg tablet 1,875 mg PO QHS cyanocobalamin (vitamin B-12) 500 mcg tablet 500 mcg PO DAILY doxazosin 2 mg tablet 2 mg PO BID ergocalciferol (vitamin D2) 1,250 mcg (50,000 unit) capsule 1,250 mcg PO CURRAN gemfibrozil 600 mg tablet 600 mg PO BID isosorbide mononitrate 60 mg tablet extended release 24 hr 60 mg PO DAILY lactulose 10 gram/15 mL solution 30 ml PO TID PRN (Reason: constipation) losartan 25 mg tablet 25 mg PO DAILY Mag Glycinate 100 mg tablet 200 mg PO DAILY multivitamin [Daily Multi-Vitamin] Tablet 1 tab PO DAILY pantoprazole 40 mg tablet,delayed release (DR/EC) 40 mg PO BID Januvia 50 mg tablet 50 mg PO DAILY spironolactone 25 mg tablet 25 mg PO DAILY torsemide 20 mg tablet 20 mg PO DAILY Trelegy Ellipta 100-62.5-25 mcg blister with device 1 ea INHALATION DAILY triamcinolone acetonide 55 mcg aerosol,spray 2 spray INTRANASAL DAILY trospium 20 mg tablet 20 mg PO BID venlafaxine 37.5 mg tablet 37.5 mg PO BID Proair Digihaler 90 mcg/actuation aero powdr breath act w/sensor 2 inh inhalation Q4H PRN (Reason: shortness of breath) ammonium lactate 12 % lotion 1 applic topical DAILY PRN (Reason: dry skin) coenzyme Q10 [Co Q-10] 100 mg capsule 100 mg PO BID ferrous gluconate 324 mg (37.5 mg iron) tablet 324 mg PO BID Referrals / Follow Up: Max Alvarenga MD [Primary Care Provider] - Within 2 Weeks Lam Velasco MD [Med Staff - Active Staff] - Within 2 Weeks Disposition Disposition (needs filled in before D/C Order can be placed): [facility]ustodial Facility Charges/Coding Visit Charges Inpatient E&M: 34942 Disch Hosp
--- NOTE | 2024-05-18 12:43 | CASEMGMT ---
Social Work- received [facility]. [facility] able to accept referral. Pt updated and is agreeable to [facility] at discharge. Pt spouse updated and is agreeable as well. Physician updated. Plan: [facility]; skilled level of care WILL [facility]
--- NOTE | 2024-05-18 14:18 | CASEMGMT ---
Discharge Planning Discharge orders, signed med list, and transport time sent to [facility]. Physicians will transport pt by wheelchair at 6p. Nursing, SW, pt, and her updated. Leslee Mesa DC Planning Asst.
[2024-05-18] MEDS: Rivaroxaban 10 MG Tablet PO (16:40)
--- NOTE | 2024-05-18 17:01 | CASEMGMT ---
Social Work- Physician feels that pt is ready for discharge today.? [facility] notified of discharge. Final discharge arrangements and notification to patient/family as per discharge system planning engineer.? Plan: [facility]; intermediate level of care [facility]
[2024-05-18 17:02] LABS: Bedside Glucose 273 mg/dL (74-106)
== END 2024-05-18 19:39 | disposition skilled nursing facility (03) | DRG 521 ==
LOC: ED 14:12 → MS3 14:41
PROVIDERS: Orthopaedic Surgery Sports Medicine; Physician Assistant; Student in an Organized Health Care Education/Training Program; Admitting Provider Internal Medicine; Emergency Provider Emergency Medicine; PCP Internal Medicine
PROC: 0SRR0J9 Replacement of Right Hip Joint, Femoral Surface with Synthetic Substitute, Cemented, Open Approach (ICD-10-PCS; CPT 27125; principal; 2024-05-15 11:40)
DX: S72.141A Displaced intertrochanteric fracture of right femur, initial encounter for closed fracture (principal); G92.8 Other toxic encephalopathy; N18.4 Chronic kidney disease, stage 4 (severe); E11.22 Type 2 diabetes mellitus with diabetic chronic kidney disease; J44.9 Chronic obstructive pulmonary disease, unspecified; I12.9 Hypertensive chronic kidney disease with stage 1 through stage 4 chronic kidney disease, or unspecified chronic kidney disease; K75.81 Nonalcoholic steatohepatitis (NASH); F32.A Depression, unspecified; E55.9 Vitamin D deficiency, unspecified; E11.51 Type 2 diabetes mellitus with diabetic peripheral angiopathy without gangrene; M54.50 Low back pain, unspecified; E11.65 Type 2 diabetes mellitus with hyperglycemia; J30.2 Other seasonal allergic rhinitis; E78.5 Hyperlipidemia, unspecified; K21.9 Gastro-esophageal reflux disease without esophagitis; I25.10 Atherosclerotic heart disease of native coronary artery without angina pectoris; W19.XXXA Unspecified fall, initial encounter; Z79.51 Long term (current) use of inhaled steroids; N32.81 Overactive bladder; R42 Dizziness and giddiness; Z87.891 Personal history of nicotine dependence; Z79.82 Long term (current) use of aspirin; G89.29 Other chronic pain; Z79.84 Long term (current) use of oral hypoglycemic drugs; R53.81 Other malaise; T50.915A Adverse effect of multiple unspecified drugs, medicaments and biological substances, initial encounter; Y92.239 Unspecified place in hospital as the place of occurrence of the external cause
CPT/HCPCS: 36415; 70450; 71045; 72170; 73502; 73552; 80048; 80053; 82306; 82803; 82962; 83036; 83735; 84100; 85025; 85027; 85610; 86850; 86900; 86901; 88305; 88307; 88311; 93005; 94668; 97116; 97162; 97166; 97530; 97535; 99252; 99285; C1776; P9047; A4216; G0463; J1940; J2405